=== PATIENT | male | born 1955 | race Caucasian/White ===

== ENCOUNTER → 2020-03-15 14:53 | Outpatient (BNVA) | payer OTHER, SELFPAY | PROVIDERS: PCP Internal Medicine; Visit Provider Urology | DX: N40.1 Benign prostatic hyperplasia with lower urinary tract symptoms (principal); R35.1 Nocturia; R39.14 Feeling of incomplete bladder emptying; N52.01 Erectile dysfunction due to arterial insufficiency | CPT/HCPCS: 51798; 99202 ==

== ENCOUNTER → 2020-04-11 14:58 | Outpatient (BNVA) | payer OTHER, SELFPAY | PROVIDERS: PCP Internal Medicine; Visit Provider Urology | DX: N40.1 Benign prostatic hyperplasia with lower urinary tract symptoms (principal); R35.1 Nocturia; N52.01 Erectile dysfunction due to arterial insufficiency | CPT/HCPCS: 52000; 81002 ==

== ENCOUNTER → 2020-12-05 09:06 | Outpatient (BNVA) | payer OTHER, SELFPAY | PROVIDERS: PCP Internal Medicine; Visit Provider Urology | DX: N40.1 Benign prostatic hyperplasia with lower urinary tract symptoms (principal); R35.1 Nocturia; R39.14 Feeling of incomplete bladder emptying; N52.01 Erectile dysfunction due to arterial insufficiency | CPT/HCPCS: 51798 ==

== ENCOUNTER 2021-02-03 08:28 | Day surgery (SDC) | payer OTHER, SELFPAY ==
[2021-01-23 12:31] VITALS: BMI 33.6
--- NOTE | 2021-01-31 11:53 | P.CONAN_ITS ---
HPI - Anesthesia Eval Consult details Narrative: 65yo M for Laser Ablation Prostate w/Green Light Cardiac cleared PMFSH Active Problems Active Problems: All Active Problems (Updated 01/23/21 @ 13:24 by Angelina Arriaga RN) BPH associated with nocturia (Acute) Erectile dysfunction due to arterial insufficiency (Acute) Feeling of incomplete bladder emptying (Acute) Past Medical History Medical History Anxiety Aortic stenosis, severe Asthma BPH (benign prostatic hyperplasia) COVID-19 vaccine series completed History of depression History of DVT (deep vein thrombosis) HTN (hypertension) Hyperlipidemia Obesity Surgical History Surgical History History of meniscectomy of right knee History of surgery History of tonsillectomy and adenoidectomy S/P TAVR (transcatheter aortic valve replacement) Status post Mohs surgery Social History Social History (Updated 03/15/20 @ 15:12 by RASHMI Bianchi) Are you a primary insurance healthcare consultant to a significant other at home: No Do you presently have visiting nurse or other home services: No Patient Tobacco Use Status: Never used Tobacco Meds Allergies Allergy/AdvReac Type Severity Reaction Status Date / Time No Known Allergies Allergy Verified 02/03/21 10:01 [No Known Allergies*] Home Medications Medication Instructions Recorded Confirmed Last Taken Type albuterol sulfate 90 mcg/actuation 2 puff INHALATION QID PRN 03/15/20 01/23/21 Unknown History aerosol inhaler amitriptyline 25 mg tablet 25 mg PO BEDTIME 03/15/20 01/23/21 Unknown History amlodipine 5 mg-benazepril 20 mg 1 cap PO DAILY 03/15/20 01/23/21 Unknown History capsule atorvastatin 40 mg tablet 40 mg PO DAILY 03/15/20 01/23/21 Unknown History amlodipine 5 mg tablet 5 mg PO DAILY 12/05/20 01/23/21 02/03/21 09:50 History budesonide-formoterol HFA 160 2 puff INHALATION BID 12/05/20 01/23/21 02/03/21 09:50 History mcg-4.5 mcg/actuation aerosol inhaler celecoxib 200 mg capsule 200 mg PO DAILY 12/05/20 01/23/21 01/18/21 History furosemide 20 mg tablet 20 mg PO DAILY PRN 12/05/20 01/23/21 Unknown History aspirin 81 mg tablet,delayed 81 mg PO DAILY 01/23/21 01/23/21 02/03/21 09:50 History release Exam Exam Date and Time: January 31, 2021 1153 Height,Weight and Vital Signs: Height 6 ft Weight 112.491 kg Pertinent Lab Results Pertinent Lab Results: 05/2020 CBC and BMP wnl from outside facility Narrative Narrative: Post-TAVR Echo (per cardiac clearance note) mean gradient of 11-15mmHg across prosthetic valve. Trace paravalvular leak. Assessment and Plan Assessment Anesthesia Assessment: Chart Reviewed
[2021-02-03] VITALS (10 sets, daily range): BP systolic 106–149; BP diastolic 9–74; PULSE 63–72; RESP 15–18; TEMP 36.3–36.5; O2SAT 93–97
[2021-02-03] MEDS: levoFLOXacin/D5W 500 MG/100 ML PIGGYBACK 100 MG IV (10:43)
--- NOTE | 2021-02-03 10:56 | W.PM.OPN ---
Operative Note Operative Note Date of Service: 02/03/21
--- NOTE | 2021-02-03 10:57 | MHC.SHP ---
Pre-Procedural Eval Section A Date of Service: 02/03/21 Section B Chief Complaint: Benign Prostatic Hyperplasia Details of Present Illness: BPH presenting for laser prostatectomy Relevant Social History: None Present Medications: see Short Stay Collaborative assessment Medical History: No relevant PMH History of Previous Operations: No relevant previous surgery Allergies: Allergies Allergy/AdvReac Type Severity Reaction Status Date / Time No Known Allergies Allergy Verified 02/03/21 10:01 [No Known Allergies*] Review of Systems Sugical H&P ROS: Negative: Constitution, Cardiovascular, Respiratory, Neurological, Psychiatric, Hem-Onc, Allergic/Immunologic, Gastrointestinal, Genitourinary, Musculoskeletal, Integumentary, Endocrine and Eyes/Ears/Nose/Throat Exam Surgical H&P Exam: Normal: HEENT, Normal: Heart, Normal: Lungs, Normal: Extremities, Normal: Abdomen, Normal: Skin and Normal: Neurological Plan Diagnosis/Plan: Unchanged (Laser prostatectomy) I have reviewed the history and physical and performed a pertinent physical examination on my patient. No changes have occurred unless specified.
--- NOTE | 2021-02-03 12:16 | P.OP_ITS ---
Operative Note Operative Note Date of Service: 02/03/21 Narrative: PreOperative Diagnosis: Bladder outlet obstruction Post Operative Diagnosis: Bladder outlet obstruction - trilobar hypertrophy Procedure: GreenLight laser enucleation of the prostate Surgeon: Dr Glynn Gan Anesthesia: General Indications for procedure: History of bladder outlet obstruction. Treated with alpha-aylin and other medications. Still with symptoms. On cystoscopy in office has trilobar hypertrophy.. Recommendation for prostate procedure with laser enucleation of prostate. It has been discussed. Focus was placed on development of retrograde examination which is a normal part of this procedure. Procedure: After informed consent was verified the patient was brought to the operating room and placed in a supine position. Anesthesia was administered per protocol. Patient was placed in modified dorsal lithotomy position and prepped and draped in a sterile fashion. Safety pause time-out was confirmed. Antibiotics have been given. Twenty-four Portuguese laser cystoscope was inserted per urethra. No abnormalities found the anterior posterior urethra. The bladder was filled on both ureteric orifices were seen in normal position away from our area of interest. Using a GreenLight laser settings of 80 w incisions were made at the 5 and 7 o'clock position. They were taken down and then laterally on each side. They were brought from the bladder neck down to the level of the veru. These defined the lateral aspects of the median lobe area. The median lobe was ablated and enucleated tissue removed. Once the median lobe area had been cleaned attention was directed to the lateral lobes. We started with the patient's left lateral lobe. Firstly the 05:00 o'clock groove was further developed. This was moved in the lateral position to undermine the tissue on the lateral side. Focus was then placed on the laser at the 1 o'clock position in developing a secondary groove down to the level of bladder fibers. The intervening tissue between these 2 grooves was removed with a combination of enucleation ablation working from the apex toward the bladder neck. A similar procedure was repeated on the patient's right-hand side. When this was completed debris and pieces of prostate removed from the bladder. Both ureteric orifices were reviewed again in shown to be patent in away from any areas of energy damage. The apical area was reviewed in any stray ooze was controlled. A 22 Portuguese 30 cc balloon Barnett catheter was placed over stylet into the bladder. Clear efflux was obtained. 30 cc was placed in the balloon and gentle traction was placed. A snap was used to hold tension once the patient will be moved and transported. Once transportation its finish this novel be removed. A belladonna and opiate suppository was placed for postprocedure pain management. He tolerated procedure well was extubated in the operating and transferred in a stable condition to the recovery area. Laser total 197,000 kilojoules, total lasing time 25 minutes 3 seconds Pathology: Prostate tissue Drains: Barnett catheter
[2021-02-03] MEDS: fentaNYL citrate/PF 100 MCG/2 ML VIAL 25 MCG IVPUSH ×2 (13:00→13:09)
[2021-02-03] MEDS: Acetaminophen 325 MG TABLET 650 MG PO (13:01)
[2021-02-03] MEDS: oxyCODONE HCl Immed Release 5 MG TABLET 10 MG PO (13:02)
== END 2021-02-03 14:25 | disposition home or self-care (01) ==
PROVIDERS: PCP Internal Medicine; Visit Provider Urology
PROC: (CPT 52648; principal; 2021-02-03 10:00)
DX: N40.1 Benign prostatic hyperplasia with lower urinary tract symptoms (principal); N13.8 Other obstructive and reflux uropathy; R39.14 Feeling of incomplete bladder emptying; R35.1 Nocturia; N52.01 Erectile dysfunction due to arterial insufficiency
CPT/HCPCS: 52648; 88305; J1956; J2250; J3010

== ENCOUNTER → 2021-02-06 08:43 | Outpatient (BNVA) | payer OTHER, SELFPAY ==
--- NOTE | 2021-06-20 09:04 | P.DS_ITS ---
DS: Providers Provider Date of Service: 02/12/21 Primary care physician: Arash Cruz MD DS: Transfer Hospital Acceptance Reason for Transfer: Transferred to [facility], post on, for neurosurgical evaluation. DS: Diagnosis Discharge Diagnosis (1) Hemorrhagic stroke: Status: Acute (2) Acute respiratory failure: Status: Acute (3) Bacteremia due to Staphylococcus: Status: Acute (4) RENETTA (acute kidney injury): Status: Acute (5) Sepsis: Status: Acute (6) BPH associated with nocturia: Status: Acute (7) HTN (hypertension): Status: Acute (8) Asthma: Status: Acute (9) Aortic stenosis, severe: Status: Acute DS: Summary Hospital Course Hospital Course: Late note for service performed on 02/12/[address] Russ. 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 Patient has been initially admitted to general medical floor and treated for staphylococcal bacteremia with broad-spectrum antibiotics. He was evaluated by Urology and infectious disease services. His hospital course was significant for development of alteration of mental status 02/11/2021 secondary to development of intracranial hemorrhage, likely secondary to septic emboli Patient has been evaluated by neurologic service. His mental status started to progressive deteriorate and he required transfer to intensive care unit and intubation for airway protection. Patient started to exhibit signs of elevated intracranial pressure an was treated with IV mannitol. Request for neurosurgical evaluation of placed with local area hospitals that were not able to accept the patient. Request for neurosurgical evaluation had [facility] has been approved and patient has been transferred to [facility] for emergent neurosurgical evaluation. Time Spent with Patient Time attestation: Total time spent providing and/or coordinating discharge services: Discharge coordination time: Greater than 30 minutes Quality: Stroke Does the patient have a stroke diagnosis?: Yes Reason for No Anti-thrombotic at DC: Contraindicated Reason for No Anticoagulant at DC: Contraindicated Reason Not Initiating IV-Tpa: Contraindicated Reason for No Anti-thrombotic by Day Two: Contraindicated Reason for No Statin at DC: Contraindicated DS: Data Data Completed and Pending Completed studies during hospitalization [Text1]: Procedures Insertion of Endotracheal Airway into Trachea, Via Natural or Artificial Opening Endoscopic (02/09/21) Insertion of Infusion Device into Superior Vena Cava, Percutaneous Approach (02/09/21) Discharge Plan Discharge Attending physician on admission: Glynn Gan Primary Care Provider: Arash Cruz Patient Disposition: [facility] Referrals: Arash Cruz MD [Primary Care Provider] - 1 Week Hospital Course: Late note for service performed on 02/12/[address] Russ. 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 Patient has been initially admitted to general medical floor and treated for staphylococcal bacteremia with broad-spectrum antibiotics. He was evaluated by Urology and infectious disease services. His hospital course was significant for development of alteration of mental status 02/11/2021 secondary to development of intracranial hemorrhage, likely secondary to septic emboli Patient has been evaluated by neurologic service. His mental status started to progressive deteriorate and he required transfer to intensive care unit and intubation for airway protection. Patient started to exhibit signs of elevated intracranial pressure an was treated with IV mannitol. Request for neurosurgical evaluation of placed with local area hospitals that were not able to accept the patient. Request for neurosurgical evaluation had [facility] has been approved and patient has been transferred to [facility] for emergent neurosurgical evaluation.
== END | disposition short-term general hospital (02) ==
PROVIDERS: PCP Internal Medicine; Visit Provider Urology
DX: N40.1 Benign prostatic hyperplasia with lower urinary tract symptoms (principal); R35.1 Nocturia
CPT/HCPCS: 51700; 51798; 99239

== ENCOUNTER 2021-02-09 04:44 | Inpatient (IN) | payer OTHER, SELFPAY ==
[2021-02-09] VITALS (7 sets, daily range): BP systolic 104–142; BP diastolic 48–78; PULSE 81–110; RESP 15–18; TEMP 36.9–38.7; O2SAT 93–99; BMI 32.1
--- NOTE | ~2021-02-09 | CT_ITS ---
EXAMINATION: CT HEAD WITHOUT CONTRAST CLINICAL INFORMATION: Unresponsive. COMPARISON: MRI brain 02/11/2021, CT head 02/11/2021 TECHNIQUE: Contiguous axial imaging was performed from the skull base to vertex without intravenous administration of contrast. This CT examination was performed using dose optimization techniques as appropriate, variously including the following: *Automated exposure control *Adjustment of mA and/or kV according to patient size (this includes techniques or standardized protocols for targeted exams where dose is matched to indication/reason for exam; i.e. extremities or head) *Use of iterative reconstruction technique DLP: 904 mGy-cm FINDINGS: Multifocal intraparenchymal hemorrhage with subarachnoid and intraventricular extension is present and increased compared with MRI of the brain 02/11/2021. The previously noted 4 cm intraparenchymal hemorrhage within the left occipital lobe measures approximately 5 cm in diameter and demonstrates new intraventricular extension into the occipital horn of the left lateral ventricle. Intraparenchymal hemorrhage over region measuring approximately 5 cm in maximum dimension is newly identified in the right occipitotemporal region with mild surrounding vasogenic edema. Mass effect results in effacement of the atrium of the right lateral ventricle. A 3.5 cm right parietal intraparenchymal hematoma is newly identified with mild surrounding vasogenic edema. Focal hemorrhage is present anteriorly in association with the right frontal lobe in a configuration suspicious for a combination of subarachnoid hemorrhage and a probable 1.3 cm diameter intraparenchymal cortical hemorrhage (series 2 image 38). The orbits and globes are normal in appearance. No significant opacification of the visualized paranasal sinuses, mastoid air cells and middle ear cavities is demonstrated. CT/CT head/brain wo con IMPRESSION: 1. Newly identified multifocal intraparenchymal hemorrhage within the brain with findings significantly progressed compared with CT of the head 02/11/2021 and MRI of the brain 02/11/2021 as detailed above with associated intraventricular and subarachnoid hemorrhage. 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 This critical result was discussed with Dr. Oneyda Murray MD by telephone at 02/12/2021 1:44 AM and it was ascertained that the content and urgency of the report was understood at the time of direct communication.
--- NOTE | ~2021-02-09 | CT_ITS ---
EXAMINATION: CT ABDOMEN AND PELVIS WITHOUT CONTRAST CLINICAL INFORMATION: Vomiting. Constipation. COMPARISON: None TECHNIQUE: Multidetector volumetric imaging was performed from the superior aspect of the liver through the pubic symphysis. Sagittal and coronal reformatted images were obtained on the technologist's workstation. This CT examination was performed using dose optimization techniques as appropriate, variously including the following: *Automated exposure control *Adjustment of mA and/or kV according to patient size (this includes techniques or standardized protocols for targeted exams where dose is matched to indication/reason for exam; i.e. extremities or head) *Use of iterative reconstruction technique DLP: 949 mGy-cm FINDINGS: LUNG BASES: There are trace right pleural effusion. There is a prosthetic aortic heart valve. LIVER, GALLBLADDER, AND BILIARY TREE: The liver is normal in size, shape, and attenuation. No focal hepatic lesion or biliary ductal dilatation is present. The gallbladder is unremarkable with no evidence of radiopaque gallstones, gallbladder wall thickening, or obvious pericholecystic inflammatory changes. PANCREAS: Unremarkable. SPLEEN: Unremarkable. ADRENAL GLANDS: Unremarkable. KIDNEYS AND URETERS: The kidneys are normal in size, shape, and attenuation. No hydronephrosis, hydroureter, or calculi seen. There are right renal cysts, largest measuring 3 cm in the lower pole of the right kidney. BLADDER: The prostate gland is enlarged and protrudes into the base of the bladder. There is a tiny amount of air in the bladder. GASTROINTESTINAL TRACT: There is stool throughout the colon suggestive of constipation. There is no evidence of obstruction. The appendix is normal. There may be a small esophageal hernia. ABDOMINAL WALL: There is a small umbilical hernia containing. LYMPH NODES: Normal. VASCULAR: There is evidence of atherosclerotic disease. No aneurysm is seen. PELVIC VISCERA: The prostate gland is enlarged and protrudes into the base of the bladder. The prostate gland measures 6 cm in AP and transverse dimensions.. OSSEOUS STRUCTURES: There are degenerative changes of the spine. There are degenerative changes at the hip joints.. CT/CT abdomen pelvis wo con IMPRESSION: Constipation. No evidence of obstruction. Right renal cysts. Enlarged prostate gland. Tiny amount of air in the bladder. This may be related to recent catheterization. Clinical correlation recommended. Differential would include infection and fistula.
--- NOTE | ~2021-02-09 | XR_ITS ---
EXAMINATION: XR CHEST CLINICAL INFORMATION: Placement of central venous catheter COMPARISON: Chest radiograph earlier this morning TECHNIQUE: Frontal view of the chest was obtained. FINDINGS: Since the prior study earlier this morning, a right IJ catheter has been placed with its tip at the SVC/RA junction. No pneumothorax. The exam is otherwise unchanged. Again seen is a TAVR and an ET tube well positioned above the yeny.. NG tube has been placed since the prior study with tip in stomach. XR/XR chest 1V IMPRESSION: Uncomplicated placement of right IJ catheter with excellent position at the SVC/RA junction Interval placement of NG tube in excellent position.
--- NOTE | ~2021-02-09 | MR_ITS ---
EXAMINATION: MR BRAIN WITHOUT AND WITH CONTRAST CLINICAL INFORMATION: Encephalopathy. COMPARISON: Head CT performed earlier today at 2:36 PM. TECHNIQUE: Multiplanar, multisequence imaging of the brain was performed before and after the intravenous administration of 10 mL of Gadavist. The examination is moderately degraded by motion artifact. FINDINGS: There is a lesion within the left occipital lobe which measures up to 4.0 cm, demonstrates heterogeneously high T2 and FLAIR signal, scattered areas of susceptibility signal, central decreased diffusion and focus of central nodular enhancement. This finding was not definitively present on the head CT performed earlier the same day. There is no significant mass effect. No midline shift or herniation is seen. A small acute cortical infarct is seen within left posterior parietal lobe. A small amount of hemorrhage is seen associated with this infarction. A few punctate foci of acute infarction are seen within the left frontal lobe and within the right postcentral gyrus. Small and punctate scattered foci of susceptibility signal are seen in both cerebral hemispheres compatible with microhemorrhages or possibly emboli. Nonspecific T2/FLAIR hyperintensity in the cerebral white matter likely represents sequela of chronic microangiopathy. The ventricles are normal in size without hydrocephalus. The major arterial flow voids are grossly preserved at the skull base. The orbital contents appear normal. MR/MR head/brain wo/w con IMPRESSION: A new 4 cm lesion is seen within the left occipital lobe. This finding was not present on the prior head CT and is suspicious for hyperacute hemorrhage. Although the head CT was motion degraded a finding of this size should have been readily visible. In the setting of bacteremia/sepsis a mycotic aneurysm with hemorrhage is the leading differential consideration. A hemorrhagic mass somehow obscured by artifact on the prior head CT remains a differential consideration. Small acute infarct in left parietal lobe with some associated hemorrhage. Scattered additional foci of acute infarction and areas of susceptibility signal are concerning for bland or septic emboli. This critical result was discussed with Dr. Huerta on 02/11/2021 7:17 PM, and it was ascertained that the content and urgency of the report was understood at the time of direct communication.
--- NOTE | ~2021-02-09 | CT_ITS ---
EXAMINATION: CT HEAD WITHOUT CONTRAST CLINICAL INFORMATION: Encephalopathy. COMPARISON: None available. TECHNIQUE: Contiguous axial imaging was performed from the skull base to vertex without intravenous administration of contrast. This CT examination was performed using dose optimization techniques as appropriate, variously including the following: *Automated exposure control *Adjustment of mA and/or kV according to patient size (this includes techniques or standardized protocols for targeted exams where dose is matched to indication/reason for exam; i.e. extremities or head) *Use of iterative reconstruction technique DLP: 961 mGy-cm FINDINGS: Exam is moderately motion degraded. There is no evidence of acute intracranial hemorrhage or edematous territorial infarction. Potential small region of laminar hyperattenuation with adjacent encephalomalacia in the posterior left parietal lobe. No additional parenchymal attenuation abnormalities demonstrated. Sherwood-white matter differentiation is preserved. The ventricles are normal in size and configuration. No evidence for obstructive hydrocephalus. No abnormal mass effect or midline shift. No demonstrated extra-axial fluid collections. No acute soft tissue or osseous abnormalities. Mild mucosal thickening of the paranasal sinuses. Moderate leftward nasal septal deviation. The mastoid air cells and middle ear cavities are clear. CT/CT head/brain wo con IMPRESSION: Exam is moderately motion degraded. 1. Within the limitations of this exam, there is no demonstrated acute intracranial hemorrhage or edematous territorial infarction. 2. There is a potential region of small region of gyriform hyperattenuation adjacent encephalomalacia in the posterior left parietal lobe. This may be seen in the setting of a subacute to chronic infarct.
--- NOTE | ~2021-02-09 | XR_ITS ---
EXAMINATION: XR CHEST CLINICAL INFORMATION: Internal jugular line placement COMPARISON: None TECHNIQUE: Frontal view of the chest was obtained. FINDINGS: An ET tube is present about 3.8 cm above the yeny. An internal jugular catheter is not seen on the chest radiograph. TAVR is noted. Heart size within normal limits. No infiltrates, effusions, pneumothorax or lung masses are seen. XR/XR chest 1V IMPRESSION: No acute intrathoracic disease. A internal jugular catheter is now present on these radiographs. ET tube in good position 3.8 cm above yeny.
[2021-02-09 05:28] LABS: Basophils Percent Auto 0.2 % (0-2); Hematocrit 42.7 % (42-52); Hemoglobin 14.9 g/dl (14.0-18.0); Imm Gran Abs Auto 0.17 X10*3/uL (0.00-0.03); Lymphocytes Absolute Auto 0.3 X10*3/uL (1.2-4.9); Lymphocytes Percent Auto 1.8 % (20-40); MANUAL DIFF FLAG NO; Mean Corpuscular HGB Conc 34.9 g/dl (31.0-36.0); Mean Corpuscular Hemoglobin 31.3 pg (27.0-33.0); Mean Corpuscular Volume 89.7 fL (80-98); Mean Platelet Volume 9.1 fL (9.4-12.4); Monocytes Absolute Auto 0.8 X10*3/uL (0.1-1.2); Monocytes Percent Auto 4.6 % (2-11); Neutrophils Absolute Auto 15.5 X10*3/uL (2.0-8.3); Neutrophils Percent Auto 92.4 % (45-73); Platelet Count 165 X10*3/uL (160-400); Red Blood Count 4.76 X10*6/uL (4.60-5.80); Red Cell Distribution Width 12.2 % (11.0-16.0); SCAN SMEAR FLAG 1; White Blood Count 16.8 X10*3/uL (4.8-10.8)
[2021-02-09 05:39] LABS: Lactic Acid 1.9 mmol/L (0.5-2.0)
[2021-02-09 05:45] LABS: Alanine Aminotransferase 29 U/L (0-40); Albumin Level 4.2 g/dL (3.5-5.0); Alkaline Phosphatase 66 U/L (39-117); Anion Gap 15 (12-20); Aspartate Amino Transferase 22 U/L (5-37); Bilirubin Total 1.1 mg/dL (0.0-1.0); Blood Urea Nitrogen 22 mg/dL (9-16); Calcium 9.5 mg/dL (8.4-10.2); Carbon Dioxide 22 mmol/L (22-29); Chloride 103 mmol/L (96-108); Creatinine Clr Calc Pharmacy 57.3; Estimated Glomerular Filt Rate 40; Glucose Random 141 mg/dL (60-115); Potassium 4.2 mmol/L (3.3-5.1); Sodium 136 mmol/L (135-145); Total Protein 6.7 g/dL (6.5-8.0)
--- NOTE | 2021-02-09 05:51 | PC.NURSE ---
pt lab and lined. pt waiting to be seen by provider.
--- NOTE | 2021-02-09 06:37 | ED.ABDPAIN ---
HPI - Abdominal Pain General Chief Complaint: Back Pain/Injury Stated Complaint: Back pain/Vomiting Time Seen by Provider: 02/09/21 06:04 Source: patient and EMS Mode of arrival: EMS Limitations: no limitations History of Present Illness MD elicited complaint: abdominal pain Pertinent past history: other (02/03 laser of BPH on bactrim) Onset (ago): day(s) (3 ) Pain Consistency: constant Location: diffuse Severity: moderate Quality: aching and fullness Radiation: none Migration to: no migration Exacerbating factors: eating Relieving factors: nothing Context: recent surgery/procedure (laser ablation BPH on 02/[address] Gan) Associated symptoms: nausea, vomiting, chills and constipation Related Data Home Medications Medication Instructions Recorded Confirmed albuterol sulfate 90 mcg/actuation 2 puff INHALATION QID PRN 03/15/20 02/09/21 aerosol inhaler amitriptyline 25 mg tablet 25 mg PO BEDTIME 03/15/20 02/09/21 amlodipine 5 mg-benazepril 20 mg 1 cap PO DAILY 03/15/20 02/09/21 capsule atorvastatin 40 mg tablet 40 mg PO DAILY 03/15/20 02/09/21 amlodipine 5 mg tablet 5 mg PO DAILY 12/05/20 02/09/21 budesonide-formoterol HFA 160 2 puff INHALATION BID 12/05/20 02/09/21 mcg-4.5 mcg/actuation aerosol inhaler aspirin 81 mg tablet,delayed 81 mg PO DAILY 01/23/21 02/09/21 release Previous Rx's Medication Instructions Recorded finasteride 5 mg tablet 5 mg PO DAILY #90 tab 09/06/20 terazosin 10 mg capsule 10 mg PO DAILY 90 Days #90 cap 09/27/20 trimethoprim 100 mg tablet 100 mg PO Q12H 10 Days #20 tab 02/03/21 Allergies Allergy/AdvReac Type Severity Reaction Status Date / Time No Known Allergies Allergy Verified 02/03/21 10:01 [No Known Allergies*] Review of Systems Review of Systems Constitutional : No Weight loss, No Fever, No Chills ENT/Mouth : No sore throat, No Rhinorrhea Eyes: No Swelling, No Redness Cardiovascular : No Chest Pain, No SOB, NoEdema Respiratory : No Cough, No Sputum, No Wheezing Gastrointestinal : Positive Nausea, Positive Vomiting, no Diarrhea, positive abdominal Pain, No Hematochezia, No Melena, pos constipation Genitourinary : No Dysuria, No Urinary Frequency, No Hematuria, No Urgency Musculoskeletal : No joint pain, No Myalgias, No Joint Swelling Skin : No Skin Lesions, No rash Neuro : pos Weakness, No Numbness, No Dizziness, No Headache Psych : No Anxiety/Panic, No Depression Heme/Lymph: No Bruising, No Lymphadenopathy Endocrine : No Polyuria, No Polydipsia All other systems reviewed and are negative. Physical Exam Vital Signs: Vital Signs: Last Vital Signs Temp 99.6 F 02/09/21 07:32 Pulse 93 02/09/21 07:32 Resp 15 02/09/21 07:32 BP 117/64 02/09/21 07:32 Pulse Ox 98 02/09/21 07:32 Body Mass Index 32.1 Appearance: Alert. Oriented X3. anxious in pain mild acute distress. Eyes: Pupils equal, round and reactive to light. ENT: Pharynx mild dry MM Neck: Normal inspection. Neck supple. CVS: Normal heart rate and rhythm. Pulses normal. Respiratory: No respiratory distress. Breath sounds normal. Abdomen: Soft and mild diffuse ttp no rebound or guarding. Skin: Skin warm and dry. Normal skin color. Normal skin turgor. Extremities: No lower extremity edema. No calf ttp Neuro: Oriented X 3. No motor deficit. No sensory deficit. Course Course Course Narrative: WBC count elevated - labs previously ordered prior to my assessment at this time infection suspected given recent procedure and [place] [address]35[place] the patient walked out of the ED then returned with her male visitor - I saw this when evaluating another patient. RN was notified (change of shift sign out was occuring). patient still with pain, intractable nv. SP two liters of fluids stil dehydrated no known prior CKD per patient will admit to hospitalist service Dr. Gan aware MDM - Abdominal Pain MDM Narrative Medical decision making narrative: 65 yo male with a few days of pain n/v and worsening constipation post laser ablation on 02/03. He is not really able to keep much down at this time. At this time labs, IVF x 2L, zofran, IV morphine for pain. CT scan ordered for obstruction. Possible UTI - empiric ceftriaxone ordered given he is not able to void much or clear his bladder due to poor PO intake Lab Data Result diagrams: 02/09/21 05:23 02/09/21 09:02 Labs: Lab Results 02/09/21 02/09/21 02/09/21 Range/Units 05:23 05:23 05:23 WBC 16.8 H (4.8-10.8) X10*3/uL RBC 4.76 (4.60-5.80) X10*6/uL Hgb 14.9 (14.0-18.0) g/dl Hct 42.7 (42-52) % MCV 89.7 (80-98) fL MCH 31.3 (27.0-33.0) pg MCHC 34.9 (31.0-36.0) g/dl RDW 12.2 (11.0-16.0) % Plt Count 165 (160-400) X10*3/uL MPV 9.1 L (9.4-12.4) fL Immature Gran % (Auto) 1.0 H (0.0-0.4) % Neut % (Auto) 92.4 H (45-73) % Lymph % (Auto) 1.8 L (20-40) % [place] % (Auto) 4.6 (2-11) % Eos % (Auto) 0.0 (0-4) % Baso % (Auto) 0.2 (0-2) % Lymph # (Auto) 0.3 L (1.2-4.9) X10*3/uL [place] # (Auto) 0.8 (0.1-1.2) X10*3/uL Eos # (Auto) 0.0 (0.0-0.4) X10*3/uL Baso # (Auto) 0.0 (0.0-0.2) X10*3/uL Abs Immat Gran (auto) 0.17 H (0.00-0.03) X10*3/uL Absolute Neuts (auto) 15.5 H (2.0-8.3) X10*3/uL Absolute Nucleated RBC 0.000 (0.0-0.012) X10*3/uL Nucleated RBC % (auto) 0.0 (0.0-0.2) /100WBC Sodium 136 (135-145) mmol/L Potassium 4.2 (3.3-5.1) mmol/L Chloride 103 (96-108) mmol/L Carbon Dioxide 22 (22-29) mmol/L Anion Gap 15 (12-20) BUN 22 H (9-16) mg/dL Creatinine 1.72 H (0.5-1.4) mg/dL Estim Creat Clear Calc 57.3 Estimated GFR 40 Random Glucose 141 H (60-115) mg/dL Lactic Acid 1.9 (0.5-2.0) mmol/L Calcium 9.5 (8.4-10.2) mg/dL Total Bilirubin 1.1 H (0.0-1.0) mg/dL AST 22 (5-37) U/L ALT 29 (0-40) U/L Alkaline Phosphatase 66 (39-117) U/L Total Protein 6.7 (6.5-8.0) g/dL Albumin 4.2 (3.5-5.0) g/dL Lipase 9 (8-78) U/L Urine Color Urine Appearance Urine pH (5.0-8.0) Ur Specific [place] (1.005-1.025) Urine Protein (NEG-TRACE) MG/DL Urine Glucose (UA) (NEG) MG/DL Urine Ketones (NEG) MG/DL Urine Blood (NEG) Urine Nitrite (NEG) Ur Leukocyte Esterase (NEG) Urine RBC (0) /HPF Urine WBC (0-4) /HPF Ur Squamous Epith Cells /LPF Urine Bacteria /LPF Urine Mucus /LPF COVID-19 (BOBBY) (Negative) COVID-19 Clin Com 02/09/21 02/09/21 02/09/21 Range/Units 07:25 08:22 09:02 WBC (4.8-10.8) X10*3/uL RBC (4.60-5.80) X10*6/uL Hgb (14.0-18.0) g/dl Hct (42-52) % MCV (80-98) fL MCH (27.0-33.0) pg MCHC (31.0-36.0) g/dl RDW (11.0-16.0) % Plt Count (160-400) X10*3/uL MPV (9.4-12.4) fL Immature Gran % (Auto) (0.0-0.4) % Neut % (Auto) (45-73) % Lymph % (Auto) (20-40) % [place] % (Auto) (2-11) % Eos % (Auto) (0-4) % Baso % (Auto) (0-2) % Lymph # (Auto) (1.2-4.9) X10*3/uL [place] # (Auto) (0.1-1.2) X10*3/uL Eos # (Auto) (0.0-0.4) X10*3/uL Baso # (Auto) (0.0-0.2) X10*3/uL Abs Immat Gran (auto) (0.00-0.03) X10*3/uL Absolute Neuts (auto) (2.0-8.3) X10*3/uL Absolute Nucleated RBC (0.0-0.012) X10*3/uL Nucleated RBC % (auto) (0.0-0.2) /100WBC Sodium (135-145) mmol/L Potassium (3.3-5.1) mmol/L Chloride (96-108) mmol/L Carbon Dioxide (22-29) mmol/L Anion Gap (12-20) BUN (9-16) mg/dL Creatinine 1.58 H (0.5-1.4) mg/dL Estim Creat Clear Calc 62.3 Estimated GFR 45 Random Glucose (60-115) mg/dL Lactic Acid (0.5-2.0) mmol/L Calcium (8.4-10.2) mg/dL Total Bilirubin (0.0-1.0) mg/dL AST (5-37) U/L ALT (0-40) U/L Alkaline Phosphatase (39-117) U/L Total Protein (6.5-8.0) g/dL Albumin (3.5-5.0) g/dL Lipase (8-78) U/L Urine Color YELLOW Urine Appearance HAZY Urine pH 5.5 (5.0-8.0) Ur Specific [place] >= 1.030 H (1.005-1.025) Urine Protein 3+ H (NEG-TRACE) MG/DL Urine Glucose (UA) NEG (NEG) MG/DL Urine Ketones 5 (NEG) MG/DL Urine Blood 3+ H (NEG) Urine Nitrite NEG (NEG) Ur Leukocyte Esterase NEG (NEG) Urine RBC 15-29 H (0) /HPF Urine WBC 1-4 (0-4) /HPF Ur Squamous Epith Cells NONE /LPF Urine Bacteria 2+ /LPF Urine Mucus 1+ /LPF COVID-19 (BOBBY) Negative (Negative) COVID-19 Clin Com See Note Critical Care Time Critical Care Time Critical Care Time: Yes Total Critical Care Time: 35 Attestation: 2L of IVF, review of records, medical consult I attest to this time spent taking care of the patient Discharge Plan Discharge Clinical Impression: Vomiting, Leukocytosis, Abdominal pain, Constipation, Bacteria in urine Patient Disposition: Admitted As Inpatient Prescriptions: No Action finasteride 5 mg tablet 5 mg PO DAILY Qty: 90 RF: 1 terazosin 10 mg capsule 10 mg PO DAILY 90 Days Qty: 90 RF: 2 aspirin 81 mg Tablet,Delayed Release (Dr/Ec) 81 mg PO DAILY RF: 0 trimethoprim 100 mg tablet 100 mg PO Q12H 10 Days Qty: 20 RF: 0 amitriptyline 25 mg tablet 25 mg PO BEDTIME RF: 0 amlodipine-benazepril 5-20 mg capsule 1 cap PO DAILY RF: 0 albuterol sulfate 90 mcg/actuation HFA aerosol inhaler 2 puff inhalation QID PRN (Reason: Wheezing) RF: 0 atorvastatin 40 mg tablet 40 mg PO DAILY RF: 0 PMFSH Past Medical History Attestation statement: The following information was validated with the patient. Medical History Anxiety Aortic stenosis, severe Asthma BPH (benign prostatic hyperplasia) COVID-19 vaccine series completed History of depression History of DVT (deep vein thrombosis) HTN (hypertension) Hyperlipidemia Obesity Surgical History History of meniscectomy of right knee History of surgery History of tonsillectomy and adenoidectomy S/P TAVR (transcatheter aortic valve replacement) Status post Mohs surgery Social History Social History Are you a primary childcare aide to a significant other at home: No Do you presently have visiting nurse or other home services: No Alcohol intake: current Alcohol intake frequency: holidays/special occasions only Patient Tobacco Use Status: Never used Tobacco Use of substances other than those prescribed or required for medical reasons: No Advance Directives: No
[2021-02-09 06:56] LABS: Lipase 9 U/L (8-78)
[2021-02-09] MEDS: Morphine Sulfate 4 MG/ML CARTRIDGE IVPUSH ×2 (07:35→09:13)
[2021-02-09] MEDS: 0.9 % Sodium Chloride 1,000 ML 999 ML IVCONT (07:35)
[2021-02-09] MEDS: ondansetron HCL 4 MG/2 ML VIAL IVPUSH ×3 (07:35→19:56)
[2021-02-09] MEDS: cefTRIAXone sodium 1 GM in 0.9 % Sodium Chloride 50 ML IV (07:36)
[2021-02-09] MEDS: 0.9 % Sodium Chloride 1,000 ML 999 ML IV (07:37)
[2021-02-09 07:54] LABS: COVID-19 Test Negative (Negative)
[2021-02-09 08:29] LABS: Glucose Urine UA NEG (NEG); Leukocyte Esterase Urine NEG (NEG); Nitrite Urine NEG (NEG); PH 5.5 (5.0-8.0); Specific Gravity - Urine >= 1.030 (1.005-1.025); UACC Culture Trigger NO; Urine Blood 3+ (NEG); Urine Ketones 5 MG/DL (NEG); Urine Protein 3+ MG/DL (NEG-TRACE)
[2021-02-09 08:30] LABS: Appearance Urine HAZY; Color Urine YELLOW
--- NOTE | 2021-02-09 08:37 | PC.NURSE ---
pt still having some pain following medication admin. gave ua spec. iv fluids continue to infuse. ct scan clear, given elkin prasanna per request, will assess if pt tolerating po. will repeat renal function following iv fluids.
[2021-02-09 08:45] LABS: Bacteria Urine 2+ /LPF; Mucus Urine 1+ /LPF
[2021-02-09 09:25] LABS: Creatinine Clr Calc Pharmacy 62.3; Estimated Glomerular Filt Rate 45
--- NOTE | 2021-02-09 10:24 | P.HPHOSP_ITS ---
History of Present Illness Date of Service: 02/09/21 Chief Complaint: chills 65M s/p laser nucleation of the prostate for Bladder outlet obstruction - trilobar hypertrophy on 02/03/21, presented for back pain, nausea, vomiting, and chills. Pain has been constant, diffuse, moderate, no aggravating or relieving factors. Associated with nausea vomiting inability to tolerate p.o.. He has also been having chills but no measured fevers. He did take his Bactrim as prescribed. In ED found to have a low-grade temperature of 99.6 degrees, leukocytosis of 16, tachycardia of 101, acute kidney injury with creatinine 1.7 He was given Rocephin, no signs of obstruction on CT, did have some small air in the bladder. Review of Systems Review of Systems: Constitutional: Reporting chills Eyes: denies blurry vision ENT: denies sore throat CVS: denies chest pain Respiratory: Denies dyspnea GI: no abdominal pain : See HPI MSK: See HPI Skin: denies rash Neuro: denies specific motor weakness Psych: denies suicidal ideation Endocrine: denies heat/cold intolerance Hematologic: denies easy bleeding Allergy: denies hives [facility], [facility] Medical History Anxiety Aortic stenosis, severe Asthma Basal cell carcinoma BPH (benign prostatic hyperplasia) COVID-19 vaccine series completed Feeling of incomplete bladder emptying History of depression History of DVT (deep vein thrombosis) HTN (hypertension) Hyperlipidemia Obesity Surgical History History of meniscectomy of right knee History of surgery History of tonsillectomy and adenoidectomy S/P TAVR (transcatheter aortic valve replacement) Status post Mohs surgery Social History Are you a primary client care specialist to a significant other at home: No Do you presently have visiting nurse or other home services: No Alcohol intake: current Alcohol intake frequency: holidays/special occasions only Patient Tobacco Use Status: Never used Tobacco Use of substances other than those prescribed or required for medical reasons: No Advance Directives: No Meds Allergies Allergy/AdvReac Type Severity Reaction Status Date / Time No Known Allergies Allergy Verified 02/03/21 10:01 [No Known Allergies*] Active Medications: Current Medications Generic Name Dose Route Start Last Admin Trade Name Freq PRN Reason Stop Dose Admin Acetaminophen 650 mg 02/09/21 10:17 Acetaminophen 325 Mg Tablet PO Q6H PRN Pain, Mild (Pain Scale 1-3) Albuterol Sulfate 2 puff 02/09/21 10:15 Albuterol Sulfate 90 Mcg 8 Gm Inhaler INHALE QID PRN Wheezing Amitriptyline HCl 25 mg 02/09/21 21:00 Amitriptyline Hcl 25 Mg Tablet PO BEDTIME [facility] Aspirin 81 mg 02/10/21 09:00 Aspirin Enteric Coated 81 Mg Tablet.Dr PO DAILY [facility] Atorvastatin Calcium 40 mg 02/10/21 21:00 Atorvastatin Calcium 40 Mg Tablet PO BEDTIME [facility] Enoxaparin Sodium 40 mg 02/09/21 10:30 Enoxaparin Sodium 40 Mg/0.4 Ml Syringe SUBCUT Q24H [facility] Finasteride 5 mg 02/10/21 09:00 Finasteride 5 Mg Tablet PO DAILY [facility] Lactated Ringer's 1,000 mls @ 80 mls/hr 02/09/21 10:30 Lr IVCONT .[id number] [facility] Ceftriaxone Sodium 1 gm/ 50 mls @ 100 mls/hr 02/10/21 06:00 Sodium Chloride IV Q24H [facility] Non-Formulary Medication 1 cap 02/10/21 09:00 Amlodipine-Benazepril PO DAILY [facility] Non-Formulary Medication 10 mg 02/10/21 09:00 Terazosin PO DAILY [facility] Ondansetron HCl 4 mg 02/09/21 10:17 Ondansetron Hcl 4 Mg/2 Ml Vial IVPUSH Q8H PRN Nausea and Vomiting Sodium Chloride 3 ml 02/09/21 16:00 0.9 % Sodium Chloride Flush 3 Ml Syringe IVFLUSH QSHIFT [facility] Home Medications Medication Instructions Recorded Confirmed Last Taken Type albuterol sulfate 90 mcg/actuation 2 puff INHALATION QID PRN 03/15/20 02/09/21 Unknown History aerosol inhaler amitriptyline 25 mg tablet 25 mg PO BEDTIME 03/15/20 02/09/21 Unknown History amlodipine 5 mg-benazepril 20 mg 1 cap PO DAILY 03/15/20 02/09/21 Unknown History capsule atorvastatin 40 mg tablet 40 mg PO DAILY 03/15/20 02/09/21 Unknown History amlodipine 5 mg tablet 5 mg PO DAILY 12/05/20 02/09/21 02/03/21 09:50 History budesonide-formoterol HFA 160 2 puff INHALATION BID 12/05/20 02/09/21 02/03/21 09:50 History mcg-4.5 mcg/actuation aerosol inhaler aspirin 81 mg tablet,delayed 81 mg PO DAILY 01/23/21 02/09/21 02/03/21 09:50 History release Physical Exam Vital Signs and Narrative: Vital Signs: Last Vital Signs Temp 98.7 F 02/09/21 09:41 Pulse 107 H 02/09/21 09:41 Resp 17 02/09/21 09:41 BP 142/72 H 02/09/21 09:41 Pulse Ox 99 02/09/21 09:41 Body Mass Index 32.1 General: Appears to be in discomfort HEENT: atraumatic Neck: normal to visual inspection CVS: S1, S2, RRR Resp: CTA bilateral Chest: non tender GI: soft, non tender, non distended : no CVA tenderness Skin: no rashes Extremities: no edema Neuro: Oriented X3, grossly intact, tremulous Psych: cooperative Results Labs CBC and Chem 7: 02/09/21 05:23 02/09/21 09:02 Labs: Laboratory Results - last 24 hr 02/09/21 02/09/21 02/09/21 05:23 05:23 05:23 MCV 89.7 MCH 31.3 MCHC 34.9 RDW 12.2 Plt Count 165 MPV 9.1 L Immature Gran % (Auto) 1.0 H Neut % (Auto) 92.4 H Lymph % (Auto) 1.8 L [place] % (Auto) 4.6 Eos % (Auto) 0.0 Baso % (Auto) 0.2 Lymph # (Auto) 0.3 L [place] # (Auto) 0.8 Eos # (Auto) 0.0 Baso # (Auto) 0.0 Abs Immat Gran (auto) 0.17 H Absolute Neuts (auto) 15.5 H Absolute Nucleated RBC 0.000 Nucleated RBC % (auto) 0.0 Anion Gap 15 Estim Creat Clear Calc 57.3 Estimated GFR 40 Random Glucose 141 H Lactic Acid 1.9 Calcium 9.5 Total Bilirubin 1.1 H AST 22 ALT 29 Alkaline Phosphatase 66 Total Protein 6.7 Albumin 4.2 Lipase 9 Urine Color Urine Appearance Urine pH Ur Specific [place] Urine Protein Urine Glucose (UA) Urine Ketones Urine Blood Urine Nitrite Ur Leukocyte Esterase Urine RBC Urine WBC Ur Squamous Epith Cells Urine Bacteria Urine Mucus COVID-19 ([facility]OBBY) COVID-19 Clin Com 02/09/21 02/09/21 02/09/21 07:25 08:22 09:02 MCV MCH MCHC RDW Plt Count MPV Immature Gran % (Auto) Neut % (Auto) Lymph % (Auto) [place] % (Auto) Eos % (Auto) Baso % (Auto) Lymph # (Auto) [place] # (Auto) Eos # (Auto) Baso # (Auto) Abs Immat Gran (auto) Absolute Neuts (auto) Absolute Nucleated RBC Nucleated RBC % (auto) Anion Gap Estim Creat Clear Calc 62.3 Estimated GFR 45 Random Glucose Lactic Acid Calcium Total Bilirubin AST ALT Alkaline Phosphatase Total Protein Albumin Lipase Urine Color YELLOW Urine Appearance HAZY Urine pH 5.5 Ur Specific [place] >= 1.030 H Urine Protein 3+ H Urine Glucose (UA) NEG Urine Ketones 5 Urine Blood 3+ H Urine Nitrite NEG Ur Leukocyte Esterase NEG Urine RBC 15-29 H Urine WBC 1-4 Ur Squamous Epith Cells NONE Urine Bacteria 2+ Urine Mucus 1+ COVID-19 (BOBBY) Negative COVID-19 Clin Com See Note Imaging Radiologist's Impressions: Impressions Abdomen/Pelvis CT 02/09/21 06:43 IMPRESSION: Constipation. No evidence of obstruction. Right renal cysts. Enlarged prostate gland. Tiny amount of air in the bladder. This may be related to recent catheterization. Clinical correlation recommended. Differential would include infection and fistula. Assessment and Plan (1) Sepsis: Status: Acute (2) RENETTA (acute kidney injury): Status: Acute 65-year-old male presented with chills status post recent laser prostatectomy Sepsis, concern for bacteremia given recent instrumentation, UTI IV ceftriaxone Follow-up cultures eval Acute kidney injury IV fluids, hold PAULINE-inhibitor, monitor Nausea vomiting Zofran Quality Stroke Does the patient have a stroke diagnosis?: No VTE Prior VTE?: Yes VTE Risk Level:: Medical - moderate - high VTE Device Contraindication: Treatment Not Indicated VTE Drug Contraindication: N/A - Med Ordered
[2021-02-09] MEDS: Lactated Ringers 1,000 ML 80 ML IVCONT (11:15)
[2021-02-09] MEDS: Enoxaparin Sodium 40 MG/0.4 ML SYRINGE SUBCUT (11:26)
[2021-02-09] MEDS: Metoclopramide HCl 10 MG/2 ML VIAL 5 MG IVPUSH (14:23)
[2021-02-09] MEDS: Morphine Sulfate 2 MG/ML CARTRIDGE IVPUSH ×2 (14:24→21:37)
[2021-02-09] MEDS: Acetaminophen 325 MG TABLET 650 MG PO ×2 (14:24→23:47)
[2021-02-09] MEDS: bisacodyL 10 MG SUPP.RECT PR (15:16)
[2021-02-09] MEDS: polyethylene glycoL 3350 17 GM POWD.PACK PO (15:16)
[2021-02-09] MEDS: Amitriptyline HCl 25 MG TABLET PO (19:56)
[2021-02-09] MEDS: vancomycin HCL 1,500 MG in 0.9 % Sodium Chloride 500 ML 333.33 MG IV (19:56)
[2021-02-10] VITALS (9 sets, daily range): BP systolic 94–142; BP diastolic 49–87; PULSE 80–98; RESP 18–20; TEMP 36.7–39.6; O2SAT 96–97
[2021-02-10] MEDS: Lactated Ringers 1,000 ML 80 ML IVCONT ×2 (01:15→14:11)
[2021-02-10] MEDS: cefTRIAXone sodium 1 GM in 0.9 % Sodium Chloride 50 ML IV (06:13)
[2021-02-10] MEDS: Finasteride 5 MG TABLET PO (07:33)
[2021-02-10] MEDS: Acetaminophen 325 MG TABLET 650 MG PO ×3 (07:33→21:20)
[2021-02-10] MEDS: Doxazosin Mesylate 2 MG TABLET 8 MG PO (07:34)
[2021-02-10] MEDS: Aspirin Enteric Coated 81 MG TABLET.DR PO (07:34)
[2021-02-10] MEDS: amLODIPine Besylate 5 MG TABLET PO (07:34)
[2021-02-10] MEDS: Metoclopramide HCl 10 MG/2 ML VIAL 5 MG IVPUSH ×3 (07:45→20:02)
[2021-02-10 07:49] LABS: PLT CLUMP 1; Red Cell Distribution Width 12.7 % (11.0-16.0)
[2021-02-10 07:51] LABS: Hematocrit 41.1 % (42-52); Hemoglobin 13.8 g/dl (14.0-18.0); Mean Corpuscular HGB Conc 33.6 g/dl (31.0-36.0); Mean Corpuscular Hemoglobin 30.9 pg (27.0-33.0); Mean Corpuscular Volume 91.9 fL (80-98); Red Blood Count 4.47 X10*6/uL (4.60-5.80); White Blood Count 9.2 X10*3/uL (4.8-10.8)
[2021-02-10 07:54] LABS: Platelet Count 98 X10*3/uL (160-400)
[2021-02-10 08:09] LABS: Anion Gap 13 (12-20); Blood Urea Nitrogen 21 mg/dL (9-16); Carbon Dioxide 24 mmol/L (22-29); Chloride 105 mmol/L (96-108); Creatinine Clr Calc Pharmacy 68.9; Estimated Glomerular Filt Rate 50; Glucose Fasting 122 mg/dL (60-99); Sodium 138 mmol/L (135-145)
[2021-02-10] MEDS: Albuterol Sulfate 90 MCG 8 GM INHALER 2 PUFF INHALE (09:17)
--- NOTE | 2021-02-10 09:59 | HO.PM.IMPN ---
Subjective Subjective Date of Service: 02/10/21 Interval History: feels terrible Cardiovascular Cardiovascular: Reports no additional cardiovascular complaints Respiratory Respiratory: Reports no additional respiratory complaints Physical Exam Vital Signs: Vital Signs: Last Vital Signs Temp 103.2 F H 02/10/21 08:00 Pulse 98 02/10/21 08:00 Resp 20 02/10/21 08:00 BP 142/77 H 02/10/21 08:00 Pulse Ox 96 02/10/21 03:50 Body Mass Index 32.1 General: AO X 3, ill appearing Resp: CTA bilateral CVS: S1,S2,RRR GI: soft, non tender, non distended Neuro: motor grossly intact Psych: appropriate affect Objective Data Active Medications Acetaminophen (Acetaminophen 325 Mg Tablet) 650 mg PO Q6H PRN PRN Reason: Pain, Mild (Pain Scale 1-3) Last Admin: 02/10/21 07:33 Dose: 650 mg Documented by: COTEMA Albuterol Sulfate (Albuterol Sulfate 90 Mcg 8 Gm Inhaler) 2 puff INHALE QID PRN PRN Reason: Wheezing Last Admin: 02/10/21 09:17 Dose: 2 puff Documented by: COTEMA Amitriptyline HCl (Amitriptyline Hcl 25 Mg Tablet) 25 mg PO BEDTIME [facility] Last Admin: 02/09/21 19:56 Dose: 25 mg Documented by: LYSlGenis Amlodipine Besylate (Amlodipine Besylate 5 Mg Tablet) 5 mg PO DAILY [facility]; Protocol Last Admin: 02/10/21 07:34 Dose: 5 mg Documented by: COTEMA Aspirin (Aspirin Enteric Coated 81 Mg Tablet.) 81 mg PO DAILY [facility] Last Admin: 02/10/21 07:34 Dose: 81 mg Documented by: COTEMA Atorvastatin Calcium (Atorvastatin Calcium 40 Mg Tablet) 40 mg PO BEDTIME [facility] Doxazosin Mesylate (Doxazosin Mesylate 2 Mg Tablet) 8 mg PO DAILY [facility] Last Admin: 02/10/21 07:34 Dose: 8 mg Documented by: COTEMA Enoxaparin Sodium (Enoxaparin Sodium 40 Mg/0.4 Ml Syringe) 40 mg SUBCUT Q24H [facility] Last Admin: 02/09/21 11:26 Dose: 40 mg Documented by: TOCHIC Finasteride (Finasteride 5 Mg Tablet) 5 mg PO DAILY [facility] Last Admin: 02/10/21 07:33 Dose: 5 mg Documented by: COTEDMUND Lactated Ringer's (Lr) 1,000 mls @ 80 mls/hr IVCONT .[id number] [facility] Last Infusion: 02/10/21 06:53 Dose: 80 mls/hr Documented by: ANDERM Vancomycin HCl 1,500 mg/ (Sodium Chloride) 500 mls @ 333.333 mls/hr IV Q24H [facility] Last Infusion: 02/09/21 21:33 Dose: 0 mls/hr Documented by: KYAW Metoclopramide HCl (Metoclopramide Hcl 10 Mg/2 Ml Vial) 5 mg IVPUSH Q6H PRN PRN Reason: nausea Last Admin: 02/10/21 07:45 Dose: 5 mg Documented by: FELECIA Morphine Sulfate (Morphine Sulfate 2 Mg/Ml Cartridge) 2 mg IVPUSH Q4H PRN; Protocol PRN Reason: pain Last Admin: 02/09/21 21:37 Dose: 2 mg Documented by: KYAW Ondansetron HCl (Ondansetron Hcl 4 Mg/2 Ml Vial) 4 mg IVPUSH Q8H PRN PRN Reason: Nausea and Vomiting Last Admin: 02/09/21 19:56 Dose: 4 mg Documented by: KYAW Pharmacy Consult (Consult Rx Vancomycin Dosing) 1 each MISCELLANE DAILY PRN PRN Reason: Consult order Sodium Chloride (0.9 % Sodium Chloride Flush 3 Ml Syringe) 3 ml IVFLUSH QSHIFT [facility] Last Admin: 02/10/21 07:26 Dose: Not Given Documented by: FELECIA Non-Admin Reason: IV Running Labs CBC & Chem 7: 02/10/21 07:28 02/10/21 07:28 Labs: Laboratory Results - last 24 hr 02/10/21 02/10/21 07:28 07:28 MCV 91.9 MCH 30.9 MCHC 33.6 RDW 12.7 Plt Count 98 L D MPV 10.0 Absolute Nucleated RBC 0.000 Nucleated RBC % (auto) 0.0 Anion Gap 13 Estim Creat Clear Calc 68.9 Estimated GFR 50 Fasting Glucose 122 H Calcium 8.0 L D Microbiology Microbiology Results: Microbiology 02/09/21 07:38 Blood Culture - Preliminary Blood - Venous Staphylococcus species 02/09/21 07:25 Blood Culture - Preliminary Blood - Venous Staphylococcus species Assessment and Plan (1) RENETTA (acute kidney injury): Status: Acute (2) Sepsis: Status: Acute (3) Bacteremia due to Staphylococcus: Status: Acute (4) BPH associated with nocturia: Status: Acute Assessment and Plan: 65-year-old male presented with chills status post recent laser prostatectomy Sepsis due to staph (likely aureus) bacteremia due to recent instrumentation for BPH changed to IV vanco Follow-up cultures ID eval Acute kidney injury IV fluids, holding PAULINE-inhibitor, monitor improving BPH proscar, doxazosin htn amlodipine Nausea vomiting Zofran Quality Stroke Does the patient have a stroke diagnosis?: No VTE Prior VTE?: Yes VTE Risk Level:: Medical - moderate - high VTE Device Contraindication: Treatment Not Indicated VTE Drug Contraindication: N/A - Med Ordered
[2021-02-10] MEDS: Enoxaparin Sodium 40 MG/0.4 ML SYRINGE SUBCUT (11:32)
--- NOTE | 2021-02-10 13:30 | W.PM.IDCN ---
History of Present Illness Data of Consult Service Date: 02/10/21 Requesting physician: Johnny Martines Primary Care Provider: Arash Cruz MD HPI Reason for consult: staph species blood He presents with discomfort perineal area for 3 days He had laser prostate surgery about a week ago and has chills and discomfort now Blood cultures staph species x2 Review of Systems Review of Systems: Yes all other systems are reviewed and are negative PMFSH Past Medical History Medical History Anxiety Aortic stenosis, severe Asthma Basal cell carcinoma BPH (benign prostatic hyperplasia) COVID-19 vaccine series completed Feeling of incomplete bladder emptying History of depression History of DVT (deep vein thrombosis) HTN (hypertension) Hyperlipidemia Obesity Surgical History Surgical History History of meniscectomy of right knee History of surgery History of tonsillectomy and adenoidectomy S/P TAVR (transcatheter aortic valve replacement) Status post Mohs surgery Social History Social History Household Members: Spouse Housing: House Are you a primary manager critical care unit to a significant other at home: No Do you presently have visiting nurse or other home services: No Alcohol intake: current Alcohol intake frequency: holidays/special occasions only Patient Tobacco Use Status: Never used Tobacco Meds Allergies Allergy/AdvReac Type Severity Reaction Status Date / Time No Known Allergies Allergy Verified 02/09/21 14:27 [No Known Allergies*] Active Medications: Current Medications Generic Name Dose Route Start Last Admin Trade Name Freq PRN Reason Stop Dose Admin Acetaminophen 650 mg 02/09/21 10:17 02/10/21 07:33 Acetaminophen 325 Mg Tablet PO 650 mg Q6H PRN Administration Pain, Mild (Pain Scale 1-3) Albuterol Sulfate 2 puff 02/09/21 10:15 02/10/21 09:17 Albuterol Sulfate 90 Mcg 8 Gm Inhaler INHALE 2 puff QID PRN Administration Wheezing Amitriptyline HCl 25 mg 02/09/21 21:00 02/09/21 19:56 Amitriptyline Hcl 25 Mg Tablet PO 25 mg BEDTIME KIMBERLEY Administration Amlodipine Besylate 5 mg 02/10/21 09:00 02/10/21 07:34 Amlodipine Besylate 5 Mg Tablet PO 5 mg DAILY KIMBERLEY Administration Protocol Aspirin 81 mg 02/10/21 09:00 02/10/21 07:34 Aspirin Enteric Coated 81 Mg Tablet.Dr PO 81 mg DAILY KIMBERLEY Administration Atorvastatin Calcium 40 mg 02/10/21 21:00 Atorvastatin Calcium 40 Mg Tablet PO BEDTIME KIMBERLEY Doxazosin Mesylate 8 mg 02/10/21 09:00 02/10/21 07:34 Doxazosin Mesylate 2 Mg Tablet PO 8 mg DAILY KIMBERLEY Administration Enoxaparin Sodium 40 mg 02/09/21 11:00 02/10/21 11:32 Enoxaparin Sodium 40 Mg/0.4 Ml Syringe SUBCUT 40 mg Q24H KIMBERLEY Administration Finasteride 5 mg 02/10/21 09:00 02/10/21 07:33 Finasteride 5 Mg Tablet PO 5 mg DAILY KIMBERLEY Administration Lactated Ringer's 1,000 mls @ 80 mls/hr 02/09/21 10:30 02/10/21 06:53 Lr IVCONT 80 mls/hr .[id number] KIMBERLEY Infusion Vancomycin HCl 1,500 mg/ 500 mls @ 333.333 mls/hr 02/09/21 20:00 02/09/21 21:33 Sodium Chloride IV Infused Q24H KIMBERLEY Infusion Metoclopramide HCl 5 mg 02/09/21 14:11 02/10/21 07:45 Metoclopramide Hcl 10 Mg/2 Ml Vial IVPUSH 5 mg Q6H PRN Administration nausea Morphine Sulfate 2 mg 02/09/21 14:10 02/09/21 21:37 Morphine Sulfate 2 Mg/Ml Cartridge IVPUSH 2 mg Q4H PRN Administration pain Protocol Ondansetron HCl 4 mg 02/09/21 10:17 02/09/21 19:56 Ondansetron Hcl 4 Mg/2 Ml Vial IVPUSH 4 mg Q8H PRN Administration Nausea and Vomiting Pharmacy Consult 1 each 02/09/21 18:55 Consult Rx Vancomycin Dosing MISCELLANE DAILY PRN Consult order Sodium Chloride 3 ml 02/09/21 16:00 02/10/21 07:26 0.9 % Sodium Chloride Flush 3 Ml Syringe IVFLUSH Not Given QSHIFT [facility], [facility]–1983 Physical Exam Vital Signs: Vital Signs: Last Vital Signs Temp 99.4 F 02/10/21 12:31 Pulse 85 02/10/21 12:31 Resp 18 02/10/21 12:31 BP 106/63 02/10/21 12:31 Pulse Ox 97 02/10/21 12:31 Body Mass Index 32.1 Const: General: cooperative HENMT: Head: Yes normal to inspection Mouth: Normal oral and palatal mucosa present Resp: Effort & Inspection: normal respiratory effort Cardio: Rate: regular rate Rhythm: regular rhythm GI: Palpation (GI): Soft to palpation and nontender : Other: pain perineal area Results Labs CBC & Chem 7: 02/12/21 01:54 02/11/21 05:23 Labs: Short CBC 02/10/21 Range/Units 07:28 WBC 9.2 (4.8-10.8) X10*3/uL Hgb 13.8 L (14.0-18.0) g/dl Hct 41.1 L (42-52) % Plt Count 98 L D (160-400) X10*3/uL BMP 02/10/21 07:28 Sodium 138 Potassium 4.0 Chloride 105 Carbon Dioxide 24 BUN 21 H Creatinine 1.43 H Calcium 8.0 L D Microbiology Microbiology Results: Microbiology 02/09/21 07:38 Blood - Venous Blood Culture - Preliminary Staphylococcus species 02/09/21 07:25 Blood - Venous Blood Culture - Preliminary Staphylococcus species Assessment and Plan (1) Bacteremia due to Staphylococcus: Status: Acute (2) RENETTA (acute kidney injury): Status: Acute (3) Sepsis: Status: Acute staph infection concerning There is possibility of MRSA (4) Thrombocytopenia: Status: Acute (5) Hemorrhagic stroke: Status: Acute (6) Expressive aphasia: Status: Acute (7) BPH associated with nocturia: Status: Acute Would continue Vancomycin Await cultures Echo F/u Urology
[2021-02-10] MEDS: 0.9 % Sodium Chloride Flush 3 ML SYRINGE IVFLUSH (14:10)
[2021-02-10] MEDS: Morphine Sulfate 2 MG/ML CARTRIDGE IVPUSH (19:45)
[2021-02-10] MEDS: vancomycin HCL 1,500 MG in 0.9 % Sodium Chloride 500 ML 333.33 MG IV (19:46)
[2021-02-10] MEDS: Atorvastatin Calcium 40 MG TABLET PO (21:20)
[2021-02-10] MEDS: Amitriptyline HCl 25 MG TABLET PO (21:20)
[2021-02-11] VITALS (8 sets, daily range): BP systolic 94–148; BP diastolic 54–81; PULSE 89–109; RESP 18–21; TEMP 36.3–39.1; O2SAT 96–100
[2021-02-11] MEDS: Lactated Ringers 1,000 ML 80 ML IVCONT ×2 (02:41→13:50)
[2021-02-11] MEDS: ondansetron HCL 4 MG/2 ML VIAL IVPUSH (02:41)
[2021-02-11] MEDS: Acetaminophen 325 MG TABLET 650 MG PO ×3 (03:22→16:06)
--- NOTE | 2021-02-11 05:03 | PC.NURSE ---
TEMP-102.4 ORALLY.BP-94/54 P-94.MEDICATED WITH 2 TYLENOL AT 0320 AND ICE PACKS APPLIED TO NECK AND WAYNE ARMPITS.0500 TEMP DOWN TO 97.4 ORALLY.
--- NOTE | 2021-02-11 05:30 | PC.NURSE ---
notified of temperature.ordered stat blood cultures and a lactic acid.
--- NOTE | 2021-02-11 05:34 | P.EN_ITS ---
Event Note Date of Service: 02/11/21 Event Note: Patient developed a fever. Already on antibiotics. Cultures re drawn and lactic acid redrawn.
--- NOTE | 2021-02-11 05:34 | PM.EVENT ---
Event Note Date of Service: 02/11/21 Event Note: Patient developed a fever. Already on antibiotics. Cultures redrawn and lactic acid redrawn.
[2021-02-11 06:00] LABS: Hemoglobin 12.6 g/dl (14.0-18.0); PLT CLUMP 1; Red Cell Distribution Width 12.5 % (11.0-16.0)
[2021-02-11 06:02] LABS: Hematocrit 36.4 % (42-52); Mean Corpuscular HGB Conc 34.6 g/dl (31.0-36.0); Mean Corpuscular Hemoglobin 30.9 pg (27.0-33.0); Mean Corpuscular Volume 89.2 fL (80-98); Mean Platelet Volume 10.8 fL (9.4-12.4); Red Blood Count 4.08 X10*6/uL (4.60-5.80); White Blood Count 7.2 X10*3/uL (4.8-10.8)
[2021-02-11 06:06] LABS: Lactic Acid 1.4 mmol/L (0.5-2.0)
[2021-02-11 06:08] LABS: Anion Gap 14 (12-20); Blood Urea Nitrogen 25 mg/dL (9-16); Calcium 7.6 mg/dL (8.4-10.2); Carbon Dioxide 19 mmol/L (22-29); Chloride 106 mmol/L (96-108); Creatinine Clr Calc Pharmacy 81.4; Estimated Glomerular Filt Rate > 60; Glucose Fasting 114 mg/dL (60-99); Potassium 3.7 mmol/L (3.3-5.1); Sodium 135 mmol/L (135-145)
[2021-02-11 06:20] LABS: Platelet Count 56 X10*3/uL (160-400)
[2021-02-11] MEDS: Finasteride 5 MG TABLET PO (08:35)
[2021-02-11] MEDS: amLODIPine Besylate 5 MG TABLET PO (08:35)
[2021-02-11] MEDS: Aspirin Enteric Coated 81 MG TABLET.DR PO (08:35)
[2021-02-11] MEDS: Doxazosin Mesylate 2 MG TABLET 8 MG PO (08:35)
--- NOTE | 2021-02-11 11:34 | MHC.CM.PN ---
PATIENT IS FEBRILE. PLAN IS FOR PICC AND ABX ONCE CULTURES RETURN. CASE MANAGEMENT FOLLOWING.
[2021-02-11 14:38] LABS: Alanine Aminotransferase 52 U/L (0-40); Albumin Level 3.1 g/dL (3.5-5.0); Alkaline Phosphatase 46 U/L (39-117); Aspartate Amino Transferase 70 U/L (5-37); Bilirubin Direct 0.6 mg/dL (0.0-0.5); Bilirubin Total 1.2 mg/dL (0.0-1.0); Total Protein 5.1 g/dL (6.5-8.0)
[2021-02-11 14:55] LABS: Ammonia 55 umol/L (13-55)
[2021-02-11 15:26] LABS: Vitamin B12 216 pg/mL (200-900)
--- NOTE | 2021-02-11 16:46 | PC.NURSE ---
pt noted to have increase confusion as morning progressed , pt has very weak and unsteady gait , pt unable to state date , time and place , MD made aware of changes and at bedside, new order head ct , lab work . vss at this time , at bedside .
--- NOTE | 2021-02-11 17:35 | P.PNIM_ITS ---
Subjective Subjective Date of Service: 02/11/21 Interval History: Toxic metabolic encephalopathy, slurred speech Review of Systems Patient found to have confusion since woke up this morning, some slurred speech during the morning rounds, also question of vision field defect ? right sided( difficult to access due to confusion), has diarrahae Physical Exam Vital Signs: Vital Signs: Last Vital Signs Temp 99.5 F 02/11/21 16:00 Pulse 99 02/11/21 16:00 Resp 19 02/11/21 16:00 BP 140/80 H 02/11/21 16:00 Pulse Ox 97 02/11/21 16:00 Body Mass Index 32.1 Physical exam: Cvs: rrr, [id number] , no murmur res: clear to auscultation ,no rhonchii or wheezing abd: no rebound or guarding ,nt, bs present. ext pulses present , no cyanosis neuro: axo2 , moves all ext , but has vision field defect ? right side upon exam Objective Data Active Medications Acetaminophen (Acetaminophen 325 Mg Tablet) 650 mg PO Q6H PRN PRN Reason: Pain, Mild (Pain Scale 1-3) Last Admin: 02/11/21 16:06 Dose: 650 mg Documented by: LINDSEY Albuterol Sulfate (Albuterol Sulfate 90 Mcg 8 Gm Inhaler) 2 puff INHALE QID PRN PRN Reason: Wheezing Last Admin: 02/10/21 09:17 Dose: 2 puff Documented by: COTEMA Amitriptyline HCl (Amitriptyline Hcl 25 Mg Tablet) 25 mg PO BEDTIME [facility] Last Admin: 02/10/21 21:20 Dose: 25 mg Documented by: DENISE Amlodipine Besylate (Amlodipine Besylate 5 Mg Tablet) 5 mg PO DAILY [facility]; Protocol Last Admin: 02/11/21 08:35 Dose: 5 mg Documented by: LINDSEY Aspirin (Aspirin Enteric Coated 81 Mg Tablet.) 81 mg PO DAILY [facility] Last Admin: 02/11/21 08:35 Dose: 81 mg Documented by: LINDSEY Atorvastatin Calcium (Atorvastatin Calcium 40 Mg Tablet) 40 mg PO BEDTIME [facility] Last Admin: 02/10/21 21:20 Dose: 40 mg Documented by: DENISE Doxazosin Mesylate (Doxazosin Mesylate 2 Mg Tablet) 8 mg PO DAILY [facility] Last Admin: 02/11/21 08:35 Dose: 8 mg Documented by: LINDSEY Enoxaparin Sodium (Enoxaparin Sodium 40 Mg/0.4 Ml Syringe) 40 mg SUBCUT Q24H [facility] Last Admin: 02/11/21 10:28 Dose: Not Given Documented by: LINDSEY Non-Admin Reason: platelets low Finasteride (Finasteride 5 Mg Tablet) 5 mg PO DAILY [facility] Last Admin: 02/11/21 08:35 Dose: 5 mg Documented by: LINDSEY Lactated Ringer's (Lr) 1,000 mls @ 80 mls/hr IVCONT .[id number] [facility] Last Admin: 02/11/21 13:50 Dose: 80 mls/hr Documented by: LINDSEY Vancomycin HCl 1,500 mg/ (Sodium Chloride) 500 mls @ 333.333 mls/hr IV Q24H [facility] Last Infusion: 02/10/21 23:16 Dose: 0 mls/hr Documented by: DENISE Thiamine HCl 200 mg/ Sodium (Chloride) 102 mls @ 204 mls/hr IV Q12H [facility] Metoclopramide HCl (Metoclopramide Hcl 10 Mg/2 Ml Vial) 5 mg IVPUSH Q6H PRN PRN Reason: nausea Last Admin: 02/10/21 20:02 Dose: 5 mg Documented by: DENISE Morphine Sulfate (Morphine Sulfate 2 Mg/Ml Cartridge) 2 mg IVPUSH Q4H PRN; Protocol PRN Reason: pain Last Admin: 02/10/21 19:45 Dose: 2 mg Documented by: DENISE Ondansetron HCl (Ondansetron Hcl 4 Mg/2 Ml Vial) 4 mg IVPUSH Q8H PRN PRN Reason: Nausea and Vomiting Last Admin: 02/11/21 02:41 Dose: 4 mg Documented by: DENISE Pharmacy Consult (Consult Rx Vancomycin Dosing) 1 each MISCELLANE DAILY PRN PRN Reason: Consult order Sodium Chloride (0.9 % Sodium Chloride Flush 3 Ml Syringe) 3 ml IVFLUSH QSHIFT [facility] Last Admin: 02/11/21 14:10 Dose: Not Given Documented by: LINDSEY Non-Admin Reason: IV Running Labs CBC & Chem 7: 02/11/21 05:23 02/11/21 05:23 Labs: Laboratory Results - last 24 hr 02/11/21 02/11/21 02/11/21 05:23 05:23 05:44 MCV 89.2 MCH 30.9 MCHC 34.6 RDW 12.5 Plt Count 56 L D MPV 10.8 Absolute Nucleated RBC 0.000 Nucleated RBC % (auto) 0.0 Anion Gap 14 Estim Creat Clear Calc 81.4 Estimated GFR > 60 Fasting Glucose 114 H Lactic Acid 1.4 Calcium 7.6 L Total Bilirubin 1.2 H Direct Bilirubin 0.6 H AST 70 H ALT 52 H Alkaline Phosphatase 46 D Ammonia Total Protein 5.1 L D Albumin 3.1 L D Vitamin B12 02/11/21 02/11/21 14:20 14:20 MCV MCH MCHC RDW Plt Count MPV Absolute Nucleated RBC Nucleated RBC % (auto) Anion Gap Estim Creat Clear Calc Estimated GFR Fasting Glucose Lactic Acid Calcium Total Bilirubin Direct Bilirubin AST ALT Alkaline Phosphatase Ammonia 55 Total Protein Albumin Vitamin B12 216 Microbiology Microbiology Results: Microbiology 02/11/21 05:23 Blood Culture - Preliminary Blood - Venous Prelim: GPC Gram Stain only 02/11/21 05:28 Blood Culture - Preliminary Blood - Venous Prelim: GPC Gram Stain only 02/11/21 05:24 Blood Culture - Final Blood - Venous 02/11/21 05:24 Blood Culture - Final Blood - Venous 02/09/21 07:38 Blood Culture - Final Blood - Venous Methicillin Res Staph Aureus 02/09/21 07:25 Blood Culture - Final Blood - Venous Methicillin Res Staph Aureus Assessment and Plan (1) Expressive aphasia: Status: Acute (2) Stroke: Status: Acute (3) Bacteremia due to Staphylococcus: Status: Acute Assessment and Plan: 65-year-old male presented with chills status post recent laser prostatectomy 1.? cva : has woke up with confusion,slurred speech/vision field defect. time unclear ct ? subacute cva on asa/statin npo swallow eval pt/ot permissive htn Seen by Neurology-added MRI with and without contrast for further evaluation of above. 2.Sepsis due to staph (likely aureus) bacteremia due to recent instrumentation for BPH Overnight fever, lactic acid normal and blood cultures sent Follow-up cultures-previous blood culture grew MRSA overnight blood cultures growing Gram-positive cocci Continue IV Vanco Id evaluation noted. Urology evaluation still pending 3.Acute kidney injury: imrpoving IV fluids, holding PAULINE-inhibitor, monitor improving 4.BPH proscar, doxazosin 5.htn amlodipine 6.Nausea vomiting Zofran Quality Stroke Does the patient have a stroke diagnosis?: No VTE Prior VTE?: Yes VTE Risk Level:: Medical - moderate - high VTE Device Contraindication: Treatment Not Indicated VTE Drug Contraindication: N/A - Med Ordered
--- NOTE | 2021-02-11 17:43 | P.CNNE_ITS ---
History of Present Illness Data of Consult Service Date: 02/11/21 Primary Care Provider: Arash Cruz MD [facility] Reason for consult: Acute change in mental status and Is a 64-year-old man with no previous history of neurological problems, stroke or TIA who had the laser surgery for benign prostatic hyperrtrophy. 5 days ago. He was in [place] over the weekend and started to feel back pain and became uncomfortable and lethargic and was brought to the hospital because of restlessness and admitted with a probable urinary tract infection and bacteremia due to staph an acute kidney injury. He has some arterial insufficiency with erectile dysfunction. While in the hospital he was noted to have increased con fusion and difficulty expressing himself and therefore a neurological consultation was called. Review of Systems Review of Systems: Patient found to have confusion since woke up this morning, some slurred speech during the morning rounds, also question of vision field defect ( difficult to access due to confusion) Yes all other systems are reviewed and are negative Cardiovascular: Cardiovascular: Reports no additional cardiovascular comp laints Respiratory: Respiratory: Reports no additional respiratory complaints [facility] Past Medical History Medical History Anxiety Aortic stenosis, severe Asthma Basal cell carcinoma BPH (benign prostatic hyperplasia) COVID-19 vaccine series completed Feeling of incomplete bladder emptying History of depression History of DVT (deep vein thrombosis) HTN (hypertension) Hyperlipidemia Obesity Surgical History Surgical History History of meniscectomy of right knee History of surgery History of tonsillectomy and adenoidectomy S/P TAVR (transcatheter aortic valve replacement) Status post Mohs surgery Social History Social History Household Members: Spouse Housing: House Are you a primary health care aide to a significant other at home: No Do you presently have visiting nurse or other home services: No Alcohol intake: current Alcohol intake frequency: holidays/special occasions only Patient Tobacco Use Status: Never used Tobacco Use of substances other than those prescribed or required for medical reasons: No Currently Displaying Signs/Symptoms of Drug Intoxication Withdrawal: No Have you been hit, kicked, punched, or otherwise hurt by someone within the past year? If so, by whom?: No Do you feel safe in your current relationship?: Yes Is there a partner from a previous relationship who is making you feel unsafe now?: No Are you made to feel afraid or neglected: No Advance Directives: No Do you have thoughts of harming others: None Do you have a plan to hurt others: No Plan Recently lost weight without trying: No Eating poorly because of decreased appetite: No Nutrition Risks: No Nutritional Risk Poor oral hygiene: No Meds Allergies Allergy/AdvReac Type Severity Reaction Status Date / Time No Known Allergies Allergy Verified 02/09/21 14:27 [No Known Allergies*] Active Medications: Current Medications Generic Name Dose Route Start Last Admin Trade Name Freq PRN Reason Stop Dose Admin Acetaminophen 650 mg 02/09/21 10:17 02/11/21 16:06 Acetaminophen 325 Mg Tablet PO 650 mg Q6H PRN Administration Pain, Mild (Pain Scale 1-3) Acetaminophen 650 mg 02/11/21 17:41 Acetaminophen 325 Mg Tablet PO 02/11/21 17:42 ONCE ONE Albuterol Sulfate 2 puff 02/09/21 10:15 02/10/21 09:17 Albuterol Sulfate 90 Mcg 8 Gm Inhaler INHALE 2 puff QID PRN Administration Wheezing Amitriptyline HCl 25 mg 02/09/21 21:00 02/10/21 21:20 Amitriptyline Hcl 25 Mg Tablet PO 25 mg BEDTIME KIMBERLEY Administration Amlodipine Besylate 5 mg 02/10/21 09:00 02/11/21 08:35 Amlodipine Besylate 5 Mg Tablet PO 5 mg DAILY KIMBERLEY Administration Protocol Aspirin 81 mg 02/10/21 09:00 02/11/21 08:35 Aspirin Enteric Coated 81 Mg Tablet. PO 81 mg DAILY KIMBERLEY Administration Atorvastatin Calcium 40 mg 02/10/21 21:00 02/10/21 21:20 Atorvastatin Calcium 40 Mg Tablet PO 40 mg BEDTIME KIMBERLEY Administration Doxazosin Mesylate 8 mg 02/10/21 09:00 02/11/21 08:35 Doxazosin Mesylate 2 Mg Tablet PO 8 mg DAILY KIMBERLEY Administration Enoxaparin Sodium 40 mg 02/09/21 11:00 02/11/21 10:28 Enoxaparin Sodium 40 Mg/0.4 Ml Syringe SUBCUT Not Given Q24H KIMBERLEY Finasteride 5 mg 02/10/21 09:00 02/11/21 08:35 Finasteride 5 Mg Tablet PO 5 mg DAILY KIMBERLEY Administration Lactated Ringer's 1,000 mls @ 80 mls/hr 02/09/21 10:30 02/11/21 13:50 Lr IVCONT 80 mls/hr .[id number] KIMBERLEY Administration Vancomycin HCl 1,500 mg/ 500 mls @ 333.333 mls/hr 02/09/21 20:00 02/10/21 23:16 Sodium Chloride IV Infused Q24H KIMBERLEY Infusion Thiamine HCl 200 mg/ Sodium 102 mls @ 204 mls/hr 02/11/21 20:00 Chloride IV Q12H KIMBERLEY Metoclopramide HCl 5 mg 02/09/21 14:11 02/10/21 20:02 Metoclopramide Hcl 10 Mg/2 Ml Vial IVPUSH 5 mg Q6H PRN Administration nausea Morphine Sulfate 2 mg 02/09/21 14:10 02/10/21 19:45 Morphine Sulfate 2 Mg/Ml Cartridge IVPUSH 2 mg Q4H PRN Administration pain Protocol Ondansetron HCl 4 mg 02/09/21 10:17 02/11/21 02:41 Ondansetron Hcl 4 Mg/2 Ml Vial IVPUSH 4 mg Q8H PRN Administration Nausea and Vomiting Pharmacy Consult 1 each 02/09/21 18:55 Consult Rx Vancomycin Dosing MISCELLANE DAILY PRN Consult order Sodium Chloride 3 ml 02/09/21 16:00 02/11/21 14:10 0.9 % Sodium Chloride Flush 3 Ml Syringe IVFLUSH Not Given QSHIFT [facility] Home Medications Medication Instructions Recorded Confirmed Last Taken Type albuterol sulfate 90 mcg/actuation 2 puff INHALATION QID PRN 03/15/20 02/09/21 Unknown History aerosol inhaler amitriptyline 25 mg tablet 25 mg PO BEDTIME 03/15/20 02/09/21 Unknown History amlodipine 5 mg-benazepril 20 mg 1 cap PO DAILY 03/15/20 02/09/21 Unknown History capsule atorvastatin 40 mg tablet 40 mg PO DAILY 03/15/20 02/09/21 Unknown History amlodipine 5 mg tablet 5 mg PO DAILY 12/05/20 02/09/21 02/03/21 09:50 History budesonide-formoterol HFA 160 2 puff INHALATION BID 07/06/2702/09/21 02/03/21 09:50 History mcg-4.5 mcg/actuation aerosol inhaler aspirin 81 mg tablet,delayed 81 mg PO DAILY 01/23/21 02/09/21 02/03/21 09:50 History release Physical Exam Vital Signs: Vital Signs: Last Vital Signs Temp 99.5 F 02/11/21 16:00 Pulse 99 02/11/21 16:00 Resp 19 02/11/21 16:00 BP 140/80 H 02/11/21 16:00 Pulse Ox 97 02/11/21 16:00 Body Mass Index 32.1 Const: General: cooperative HENMT: Head: Yes normal to inspection Mouth: Normal oral and palatal mucosa present Resp: Effort & Inspection: normal respiratory effort Cardio: Rate: regular rate Rhythm: regular rhythm GI: Palpation (GI): Soft to palpation and nontender : Other: pain perineal area Neuro: Other: Examination he is alert, pleasant and cooperative has a leeft gaze preference. Speech is slightly thick and he has expressive dysphagia and word salad not always making sense, yet he is able to name correctly and has no right left disorientation. He is able to repeat correctly. He follows commands. He has a right visual field neglect. He moves all 4 extremities without any apparent weakness. There is no facial asymmetry. Tongue protrudes in the midline. He is hyporeflexic. Plantar response are flexor. Her neck is supple. Cranial nerves: Yes CN's II-XII intact bilaterally (Right visual field cut) Results Labs CBC & Chem 7: 02/11/21 05:23 02/11/21 05:23 Labs: Short CBC 02/11/21 Range/Units 05:23 WBC 7.2 (4.8-10.8) X10*3/uL Hgb 12.6 L (14.0-18.0) g/dl Hct 36.4 L (42-52) % Plt Count 56 L D (160-400) X10*3/uL BMP 02/11/21 05:23 Sodium 135 Potassium 3.7 Chloride 106 Carbon Dioxide 19 L BUN 25 H Creatinine 1.21 Calcium 7.6 L Liver Function 02/11/21 Range/Units 05:23 Total Bilirubin 1.2 H (0.0-1.0) mg/dL Direct Bilirubin 0.6 H (0.0-0.5) mg/dL AST 70 H (5-37) U/L ALT 52 H (0-40) U/L Alkaline Phosphatase 46 D (39-117) U/L Albumin 3.1 L D (3.5-5.0) g/dL Microbiology Microbiology Results: Microbiology 02/11/21 05:23 Blood - Venous Blood Culture - Preliminary Prelim: GPC Gram Stain only 02/11/21 05:28 Blood - Venous Blood Culture - Preliminary Prelim: GPC Gram Stain only 02/11/21 05:24 Blood - Venous Blood Culture - Final 02/11/21 05:24 Blood - Venous Blood Culture - Final 02/09/21 07:38 Blood - Venous Blood Culture - Final Methicillin Res Staph Aureus 02/09/21 07:25 Blood - Venous Blood Culture - Final Methicillin Res Staph Aureus Assessment and Plan (1) Bacteremia due to Staphylococcus: Status: Acute (2) RENETTA (acute kidney injury): Status: Acute (3) Sepsis: Status: Acute staph infection concerning There is possibility of MRSA (4) Expressive aphasia: Status: Acute There appears to have significant expressive dyssphasia and word finding difficulties and difficulty putting together a sentence. Along with a right visual field deficits suggesting an area of damage in the left parietal area, probably an acute stroke or an infectious etiology. A stat MRI of the brain has been ordered. (5) Stroke: Status: Acute Stat MRI of the brain to rule out left parietal infarct or infectious process such as Cerebritis/Abscess Would continue Vancomycin Await cultures Echo F/u Urology Procedures Date of Service Date of Service: 02/11/21
[2021-02-11] MEDS: LORazepam 2 MG/ML VIAL 0.5 MG IVPUSH (18:07)
--- NOTE | 2021-02-11 19:06 | P.EN_ITS ---
Event Note Date of Service: 02/11/21 Event Note: received call from Radiology 4cm lesion in left occipital lobe ?bl eed vs embolic stroke with some hemorrhagic conversion embolic strokes left frontal and bl prietal lobes case discussed with neurologist after viewing the MRI, Neurology recommed to continue abx, rpt CT head w/o cointrast in AM. Hold all anti-plt, anticoagulants pt transferred to [facility] family at bedside notified
[2021-02-11 19:39] LABS: Vancomycin Trough 5.1 mcg/mL (10.0-20.0)
[2021-02-11] MEDS: Morphine Sulfate 2 MG/ML CARTRIDGE IVPUSH (20:27)
[2021-02-11] MEDS: vancomycin HCL 1,000 MG in 0.9 % Sodium Chloride 250 ML 270 MG IV (20:28)
--- NOTE | 2021-02-11 20:44 | P.CNUR_ITS ---
History of Present Illness Consult details Consult date: 02/11/21 Narrative: Patient seen. Is being transferred up to intermediate care. Underwent prostate procedure early last week. Was given antibiotic coverage with IV Levaquin and sent home with Bactrim as is our standard. Presented to hospital on Wednesday with temperature. Has been found to have MRSA. Resistant to both Levaquin and Bactrim. Has been switched to appropriate antibiotics. May also have suffered a stroke during this time frame. Is currently going and observation for his current conditions. White count down from 16 to 7.2. Discussed events with his . It is unfortunate he had underlying resistant MRSA that was unknown. Should respond to IV antibiotics. We will continue to follow. [facility] Past Medical History Medical History Anxiety Aortic stenosis, severe Asthma Basal cell carcinoma BPH (benign prostatic hyperplasia) COVID-19 vaccine series completed Feeling of incomplete bladder emptying History of depression History of DVT (deep vein thrombosis) HTN (hypertension) Hyperlipidemia Obesity Surgical History Surgical History History of meniscectomy of right knee History of surgery History of tonsillectomy and adenoidectomy S/P TAVR (transcatheter aortic valve replacement) Status post Mohs surgery Social History Social History Household Members: Spouse Housing: House Are you a primary pet care worker to a significant other at home: No Do you presently have visiting nurse or other home services: No Alcohol intake: current Alcohol intake frequency: holidays/special occasions only Patient Tobacco Use Status: Never used Tobacco Use of substances other than those prescribed or required for medical reasons: No Currently Displaying Signs/Symptoms of Drug Intoxication Withdrawal: No Have you been hit, kicked, punched, or otherwise hurt by someone within the past year? If so, by whom?: No Do you feel safe in your current relationship?: Yes Is there a partner from a previous relationship who is making you feel unsafe now?: No Are you made to feel afraid or neglected: No Advance Directives: No Do you have thoughts of harming others: None Do you have a plan to hurt others: No Plan Recently lost weight without trying: No Eating poorly because of decreased appetite: No Nutrition Risks: No Nutritional Risk Poor oral hygiene: No Meds Allergies Allergy/AdvReac Type Severity Reaction Status Date / Time No Known Allergies Allergy Verified 02/09/21 14:27 [No Known Allergies*] Active Medications: Current Medications Generic Name Dose Route Start Last Admin Trade Name Freq PRN Reason Stop Dose Admin Acetaminophen 650 mg 02/09/21 10:17 02/11/21 16:06 Acetaminophen 325 Mg Tablet PO 650 mg Q6H PRN Administration Pain, Mild (Pain Scale 1-3) Albuterol Sulfate 2 puff 02/09/21 10:15 02/10/21 09:17 Albuterol Sulfate 90 Mcg 8 Gm Inhaler INHALE 2 puff QID PRN Administration Wheezing Amitriptyline HCl 25 mg 02/09/21 21:00 02/10/21 21:20 Amitriptyline Hcl 25 Mg Tablet PO 25 mg BEDTIME KIMBERLEY Administration Amlodipine Besylate 5 mg 02/10/21 09:00 02/11/21 08:35 Amlodipine Besylate 5 Mg Tablet PO 5 mg DAILY KIMBERLEY Administration Protocol Aspirin 81 mg 02/10/21 09:00 02/11/21 08:35 Aspirin Enteric Coated 81 Mg Tablet. PO 81 mg DAILY KIMBERLEY Administration Atorvastatin Calcium 40 mg 02/10/21 21:00 02/10/21 21:20 Atorvastatin Calcium 40 Mg Tablet PO 40 mg BEDTIME KIMBERLEY Administration Doxazosin Mesylate 8 mg 02/10/21 09:00 02/11/21 08:35 Doxazosin Mesylate 2 Mg Tablet PO 8 mg DAILY KIMBERLEY Administration Enoxaparin Sodium 40 mg 02/09/21 11:00 02/11/21 10:28 Enoxaparin Sodium 40 Mg/0.4 Ml Syringe SUBCUT Not Given Q24H KIMBERLEY Finasteride 5 mg 02/10/21 09:00 02/11/21 08:35 Finasteride 5 Mg Tablet PO 5 mg DAILY KIMBERLEY Administration Lactated Ringer's 1,000 mls @ 80 mls/hr 02/09/21 10:30 02/11/21 13:50 Lr IVCONT 80 mls/hr .[id number] KIMBERLEY Administration Thiamine HCl 200 mg/ Sodium 102 mls @ 204 mls/hr 02/11/21 20:00 Chloride IV Q12H KIBMERLEY Vancomycin HCl 1,000 mg/ 270 mls @ 270 mls/hr 02/11/21 20:00 02/11/21 20:28 Sodium Chloride IV 270 mls/hr Q12H KIMBERLEY Administration Metoclopramide HCl 5 mg 02/09/21 14:11 02/10/21 20:02 Metoclopramide Hcl 10 Mg/2 Ml Vial IVPUSH 5 mg Q6H PRN Administration nausea Morphine Sulfate 2 mg 02/09/21 14:10 02/11/21 20:27 Morphine Sulfate 2 Mg/Ml Cartridge IVPUSH 2 mg Q4H PRN Administration pain Protocol Morphine Sulfate 4 mg 02/11/21 20:11 Morphine Sulfate 4 Mg/Ml Cartridge IVPUSH Q4H PRN Pain, Severe (Pain Scale 7-10) Protocol Ondansetron HCl 4 mg 02/09/21 10:17 02/11/21 02:41 Ondansetron Hcl 4 Mg/2 Ml Vial IVPUSH 4 mg Q8H PRN Administration Nausea and Vomiting Pharmacy Consult 1 each 02/09/21 18:55 Consult Rx Vancomycin Dosing MISCELLANE DAILY PRN Consult order Sodium Chloride 3 ml 02/09/21 16:00 02/11/21 14:10 0.9 % Sodium Chloride Flush 3 Ml Syringe IVFLUSH Not Given QSHIFT [facility] Home Medications Medication Instructions Recorded Confirmed Last Taken Type albuterol sulfate 90 mcg/actuation 2 puff INHALATION QID PRN 03/15/20 02/09/21 Unknown History aerosol inhaler amitriptyline 25 mg tablet 25 mg PO BEDTIME 03/15/20 02/09/21 Unknown History amlodipine 5 mg-benazepril 20 mg 1 cap PO DAILY 03/15/20 02/09/21 Unknown History capsule atorvastatin 40 mg tablet 40 mg PO DAILY 03/15/20 02/09/21 Unknown History amlodipine 5 mg tablet 5 mg PO DAILY 12/05/20 02/09/21 02/03/21 09:50 History budesonide-formoterol HFA 160 2 puff INHALATION BID 12/05/20 02/09/21 02/03/21 09:50 History mcg-4.5 mcg/actuation aerosol inhaler aspirin 81 mg tablet,delayed 81 mg PO DAILY 01/23/21 02/09/21 02/03/21 09:50 History release Physical Exam Vital Signs: Vital Signs: Last Vital Signs Temp 98.4 F 02/11/21 19:41 Pulse 101 H 02/11/21 19:41 Resp 21 H 02/11/21 19:41 BP 148/75 H 02/11/21 19:41 Pulse Ox 96 02/11/21 19:41 Body Mass Index 32.1 Unwell appearing Const: General: No healthy appearing or comfortable Orientation /consciousness: No oriented to place and No oriented to time Resp: Effort & Inspection: decreased respiratory effort and labored GI: Inspection: Yes normal to inspection Palpation (GI): Soft to palpation and nontender Neuro: Other: Grossly intact moving all 4 General: No oriented to place and No oriented to time Results Labs Result diagrams: 02/11/21 05:23 02/11/21 05:23 Labs: Abnormal lab results 02/11/21 02/11/21 02/11/21 Range/Units 05:23 05:23 18:56 RBC 4.08 L (4.60-5.80) X10*6/uL Hgb 12.6 L (14.0-18.0) g/dl Hct 36.4 L (42-52) % Plt Count 56 L D (160-400) X10*3/uL Carbon Dioxide 19 L (22-29) mmol/L BUN 25 H (9-16) mg/dL Fasting Glucose 114 H (60-99) mg/dL Calcium 7.6 L (8.4-10.2) mg/dL Total Bilirubin 1.2 H (0.0-1.0) mg/dL Direct Bilirubin 0.6 H (0.0-0.5) mg/dL AST 70 H (5-37) U/L ALT 52 H (0-40) U/L Total Protein 5.1 L D (6.5-8.0) g/dL Albumin 3.1 L D (3.5-5.0) g/dL Vancomycin Trough 5.1 L (10.0-20.0) mcg/mL Short CBC 02/11/21 Range/Units 05:23 WBC 7.2 (4.8-10.8) X10*3/uL Hgb 12.6 L (14.0-18.0) g/dl Hct 36.4 L (42-52) % Plt Count 56 L D (160-400) X10*3/uL BMP 02/11/21 05:23 Sodium 135 Potassium 3.7 Chloride 106 Carbon Dioxide 19 L BUN 25 H Creatinine 1.21 Calcium 7.6 L Liver Function 02/11/21 Range/Units 05:23 Total Bilirubin 1.2 H (0.0-1.0) mg/dL Direct Bilirubin 0.6 H (0.0-0.5) mg/dL AST 70 H (5-37) U/L ALT 52 H (0-40) U/L Alkaline Phosphatase 46 D (39-117) U/L Albumin 3.1 L D (3.5-5.0) g/dL Urine 02/09/21 Range/Units 08:22 Urine Color YELLOW Urine Appearance HAZY Urine pH 5.5 (5.0-8.0) Ur Specific [place] >= 1.030 H (1.005-1.025) Urine Protein 3+ H (NEG-TRACE) MG/DL Urine Glucose (UA) NEG (NEG) MG/DL All other labs normal. Assessment and Plan (1) Sepsis: Status: Acute (2) RENETTA (acute kidney injury): Status: Acute (3) Bacteremia due to Staphylococcus: Status: Acute Antibiotic management per Medicine Procedures Date of Service Date of Service: 02/11/21
[2021-02-11] MEDS: Thiamine HCL 200 MG in 0.9 % Sodium Chloride 100 ML 204 MG IV (22:55)
[2021-02-11] MEDS: metroNIDAZOLE/NS 500 MG/100 ML PIGGYBACK 100 MG IV (23:06)
[2021-02-12] VITALS (8 sets, daily range): BP systolic 111–172; BP diastolic 61–86; PULSE 84–128; RESP 20–26; TEMP 39.2–39.9; O2SAT 93–98
[2021-02-12] MEDS: 0.9 % Sodium Chloride Flush 3 ML SYRINGE IVFLUSH (00:10)
--- NOTE | 2021-02-12 01:37 | PC.NURSE ---
pt transferred from [id number]
--- NOTE | 2021-02-12 01:39 | PC.NURSE ---
2103 pt transferred from [place] [id number] rm 353 to [facility] rm 472. @ bedside. pt continues to not answer questions as reported by previous RN. but opened eyes to verbal command. severe generalized weakness, incontinent of urine - niurka care given. pt noted to be snoring with sleep, not while awake. reports pt snores at home. 0000 - same assessment. eyes open with stimulation,incontinent of urine except at 0040 pt not repsponding to sternal rub pupils = but pinpoint and nonreactive. call placed to Dr. Araiza & up for bedside eval. poc [phone]. given narcan 0.4mg iv as ordered by Dr. Araiza @ 0051 without effect & pt to Ct scan state. while in ED, ED md stated pt needed intubation. hospitalist in ED agrees with plan. ct with large bleeds ? transfer to [facility] - to ICU in the interim.
--- NOTE | 2021-02-12 01:47 | W.PM.CCHP ---
Procedures Abscess I/D Consent for Procedure: Emergent-no informed consent obtained
--- NOTE | 2021-02-12 01:48 | W.PM.CCHP ---
Procedures Date of Service Date of Service: 02/12/21 Intubation Intubation Comments: Dr Murray at the bedside Consent for Procedure: Emergent-no informed consent obtained Sedative: other Mg given: 50 Paralytic: rocuronium Mg given: 50 Laryngoscope: fiber optic video scope ET tube size: 8 Tube placement confirmation: visualized tube passing through cords, equal breath sounds bilaterally, no breath sounds over epigastrium and confirmation by capnometry Patient tolerated procedure: well and no complications Intubation complications: none
[2021-02-12 01:53] LABS: Glucose, Whole Blood 151 mg/dL (60-115)
[2021-02-12 02:02] LABS: Hemoglobin 13.1 g/dl (14.0-18.0); PLT CLUMP 1
[2021-02-12 02:04] LABS: Hematocrit 37.9 % (42-52); Mean Corpuscular HGB Conc 34.6 g/dl (31.0-36.0); Mean Corpuscular Hemoglobin 30.8 pg (27.0-33.0); Red Blood Count 4.26 X10*6/uL (4.60-5.80); White Blood Count 11.2 X10*3/uL (4.8-10.8)
[2021-02-12 02:14] LABS: Fibrinogen 382 MG/DL (259-690); INTERNATIONAL NORM RATIO 1.3 (0.9-1.1); Prothrombin Time 14.4 SEC (9.9-13.0)
--- NOTE | 2021-02-12 02:18 | P.EN_ITS ---
Event Note Date of Service: 02/12/21 Event Note: Received a call from nurse around midnight that patient has develo ped agonal breathing and has become more unresponsive. On evaluation patient on responsive, minimally opens his eyes to painful stimuli but has pinpoint pupils nonreactive to light, agonal breathing, Narcan was given with no response, patient sent to head CT stat which showed: Newly identified multifocal intraparenchymal hemorrhage within the brain with findings significantly progressed compared with CT of the head 02/11/2021 and MRI of the brain 02/11/2021 as detailed above with associated intraventricular and subarachnoid hemorrhage. 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 Patient was intubated and sent to the ICU post CT head. Call made to Neurology, pending a call back. Call made to [facility] surgery Department, were unable to except patient due to lack of beds. Call made to [facility] pending response. Case was discussed with ICU city driver. All this has been communicated to the and she was informed that new lesions have now appeared on head CT and patient is pending transfer to outside hospital.
[2021-02-12 02:24] LABS: COVID-19 Test Negative (Negative); IDNOW Serial# 55D5AD1C
[2021-02-12] MEDS: Naloxone HCl 0.4 MG/ML VIAL IVPUSH (02:24)
[2021-02-12 02:25] LABS: Platelet Count 21 X10*3/uL (160-400)
[2021-02-12 02:32] LABS: Band Neutrophils Percent 9 % (3-5); Lymphocytes Absolute Manual 0.4 X10*3/uL (0.6-4.8); Lymphocytes Percent Manual 4 % (20-40); Monocytes Absolute Manual 0.3 X10*3/uL (0.0-1.2); Monocytes Percent Manual 3 % (2-11); Neutrophils Absolute Manual 10.4 X10*3/uL (2.2-7.9); Neutrophils Percent Manual 84 % (45-73)
[2021-02-12 02:38] LABS: RBC Morphology NOTED
[2021-02-12 02:39] LABS: Acanthocytes 1+ (0-2) /OIF; Large Platelet PRESENT; Platelet Estimate DECREASED (NORMAL); Platelet Morphology Comment NORMAL
[2021-02-12 02:40] LABS: Dohle Bodies PRESENT; Toxic Vacuolation PRESENT
[2021-02-12 02:42] LABS: Ovalocytes 1+ (5-14) /OIF
[2021-02-12 03:10] LABS: D Dimer 34750 NG/ML
[2021-02-12] MEDS: fentaNYL citrate/NS 1,000 MCG/100 ML PLAST..BAG 20 MCG IVCONT (03:17)
[2021-02-12] MEDS: propofoL 200 MG/20 ML VIAL 50 MG IVPUSH (03:30)
[2021-02-12] MEDS: MannitoL 12.5 GM/50 ML VIAL IV (04:31)
--- NOTE | 2021-02-12 04:33 | PM.CCN ---
Critical Care Event Note Summary Date of Service: 02/12/21 Code activated: No Narrative: This case had a high probability of a clinically significant, sudden, or life threatening deterioration of this patient's condition which required my full and direct attention, intervention and personal management. Critical Care Time (minutes): 90 Comment: Patient was noted to be unresponsive well on the floor in the intermediate care unit, see event note, CT of the head showed new multifocal intraparenchymal hemorrhage, see head CT from 02/12/2021. Pt was intuabed in the ED and brought to the ICU for monitoring. In the meanwhile, after calling 3 other hospitals in the area and being declined because there were no rooms available, Dr. Carolina was able to secure the patient a room at [facility] in [place]. Once the patient was brought up to the ICU, he was started on a Fentanyl drip for pain/sedation. Labs were ordered to r/o DIC as well as regular labs and platelets were ordered. Patient was given 25gm mannitol, to reduce intracranial pressure, end-tidal CO2 goal of 35-40 to hyperventilate the patient. Pt's Mary came to the ICU shortly after her arrived, reviewed head CT and grave situation. Advised her to call her son and for him to come in, her son Glen came in shortly after and the family is at the bedside. Once a bed was secured and report was given to the nurse at [facility], we tried two [facility] to transport the patient emergently to [facility], both declined due to weather. During this time, we did order an ambulance so the patient could be transported expeditiously. Pt's VSS although his breathing was still not synchronous with the vent, we pushed 50 Propofol and I placed a TLC and nursing placed an OG tube so we could place him on a propofol drip. Levophed was order to support patient's blood pressure as it was coming down slowly secondary to the sedation meds. Pt now synchronous with the vent, VSS, family at bedside, waiting for transportation ambulance. Assessment and plan discussed with Dr. Farfan
[2021-02-12] MEDS: propofoL 1,000 MG/100 ML VIAL 13.27 MG IVCONT (04:35)
--- NOTE | 2021-02-12 04:45 | W.PM.CCHP ---
Procedures Date of Service Date of Service: 02/12/21 Central Line Placement Right IJ: Central Line Comments: Consent was obtained as the patient's is at the bedside. Venous access needed. Consent for Procedure: Emergent-no informed consent obtained Time out performed: Yes Sterile Technique Used: Yes Patient placed on monitor/pulse ox: Yes prep: mask, gown and gloves Central line prep: Chlorhexidine scrub and sterile drapes applied Central line lumen inserted: triple Post procedure: sutured in place, good blood return, all ports aspirated, flushed, capped and sterile dressing applied Post procedure x-ray: tip of catheter in good position and no pneumothorax seen Patient tolerated procedure: well and no complications Complications: none
--- NOTE | 2021-02-12 06:01 | PC.NURSE ---
Pt to ICU from CT scan/IMC. See imaging results. Pt intubated in ED after scan and sent to ICU. Upon arrival at 0130- pt unresponsive, pupils unequal/fixed, R > L. No response to any stimulation. PA aware of all labs. /son at bedside shortly after arrival. Vent settings- AC 24/550/5/50%, overbreathes vent, RR 26. ETT#8, at 26 cm. Agonal breathing, fentanyl/propofol gtt for sedation/comfort. TLC placed to R IJ. Barnett/OGT placed. 25g mannitol given IVP. Tmax 103.6 core, given IV APAP x1 dose. NSR/ST on tele, HR 90-130s. SBP 100s, trending down, levophed gtt started. Pt transported to [facility] at approx 0530 with [facility]- all other facilities/transportation methods were declined d/t bed availability/weather. Family aware of plan of care, pt belongings sent with them. Report given to RN at receiving facility.
[2021-02-15 10:06] LABS: Vitamin B1 17 nmol/L (8-30)
--- NOTE | 2021-06-20 09:04 | P.DS_ITS ---
DS: Providers Provider Date of Service: 02/12/21 Primary care physician: Arash Cruz MD DS: Transfer Hospital Acceptance Reason for Transfer: Transferred to [facility], post on, for neurosurgical evaluation. DS: Diagnosis Discharge Diagnosis (1) Hemorrhagic stroke: Status: Acute (2) Acute respiratory failure: Status: Acute (3) Bacteremia due to Staphylococcus: Status: Acute (4) RENETTA (acute kidney injury): Status: Acute (5) Sepsis: Status: Acute (6) BPH associated with nocturia: Status: Acute (7) HTN (hypertension): Status: Acute (8) Asthma: Status: Acute (9) Aortic stenosis, severe: Status: Acute DS: Summary Hospital Course Hospital Course: Late note for service performed on 02/12/[address] Russ. 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 Patient has been initially admitted to general medical floor and treated for staphylococcal bacteremia with broad-spectrum antibiotics. He was evaluated by Urology and infectious disease services. His hospital course was significant for development of alteration of mental status 02/11/2021 secondary to development of intracranial hemorrhage, likely secondary to septic emboli Patient has been evaluated by neurologic service. His mental status started to progressive deteriorate and he required transfer to intensive care unit and intubation for airway protection. Patient started to exhibit signs of elevated intracranial pressure an was treated with IV mannitol. Request for neurosurgical evaluation of placed with local area hospitals that were not able to accept the patient. Request for neurosurgical evaluation had [facility] has been approved and patient has been transferred to [facility] for emergent neurosurgical evaluation. Time Spent with Patient Time attestation: Total time spent providing and/or coordinating discharge services: Discharge coordination time: Greater than 30 minutes Quality: Stroke Does the patient have a stroke diagnosis?: Yes Reason for No Anti-thrombotic at DC: Contraindicated Reason for No Anticoagulant at DC: Contraindicated Reason Not Initiating IV-Tpa: Contraindicated Reason for No Anti-thrombotic by Day Two: Contraindicated Reason for No Statin at DC: Contraindicated DS: Data Data Completed and Pending Completed studies during hospitalization [Text1]: Procedures Insertion of Endotracheal Airway into Trachea, Via Natural or Artificial Opening Endoscopic (02/09/21) Insertion of Infusion Device into Superior Vena Cava, Percutaneous Approach (02/09/21) Discharge Plan Discharge Attending physician on admission: Glynn Gan Primary Care Provider: Arash Cruz Patient Disposition: [facility] Referrals: Arash Cruz MD [Primary Care Provider] - 1 Week Hospital Course: Late note for service performed on 02/12/[address] Russ. 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 Patient has been initially admitted to general medical floor and treated for staphylococcal bacteremia with broad-spectrum antibiotics. He was evaluated by Urology and infectious disease services. His hospital course was significant for development of alteration of mental status 02/11/2021 secondary to development of intracranial hemorrhage, likely secondary to septic emboli Patient has been evaluated by neurologic service. His mental status started to progressive deteriorate and he required transfer to intensive care unit and intubation for airway protection. Patient started to exhibit signs of elevated intracranial pressure an was treated with IV mannitol. Request for neurosurgical evaluation of placed with local area hospitals that were not able to accept the patient. Request for neurosurgical evaluation had [facility] has been approved and patient has been transferred to [facility] for emergent neurosurgical evaluation.
== END 2021-02-12 05:22 | disposition short-term general hospital (02) | DRG 871 ==
LOC: HO.ED 09:30 → HO.EDOVER 10:43 → HO.S3 12:07 → HO.IMC 02-11 19:31 → HO.ICU 02-12 01:37
PROVIDERS: Internal Medicine; Admitting Provider Internal Medicine; Emergency Provider Emergency Medicine; PCP Internal Medicine; Visit Provider Internal Medicine
DX: A41.9 Sepsis, unspecified organism (principal); I63.49 Cerebral infarction due to embolism of other cerebral artery; N17.9 Acute kidney failure, unspecified; E78.5 Hyperlipidemia, unspecified; N40.1 Benign prostatic hyperplasia with lower urinary tract symptoms; R35.1 Nocturia; R13.10 Dysphagia, unspecified; Z20.822 Contact with and (suspected) exposure to COVID-19
CPT/HCPCS: 36415; 70450; 70553; 71045; 74176; 80048; 80053; 80076; 80202; 81001; 82140; 82565; 82607; 82947; 83605; 83690; 84425; 85007; 85025; 85027; 85379; 85384; 85610; 86850; 86900; 86901; 87040; 87077; 87186; 87205; 87635; 94002; 94003; 96361; 96374; 96375; 99285; 99291; A9585; J0131; J0696; J1650; J2060; J2150; J2270; J2405; J2765; J3010; J3370; J3411